=== PATIENT | male | born 1935 | race Caucasian/White ===

== ENCOUNTER 2017-01-06 13:28 | Inpatient (IN) | payer BC, MEDICARE ==
--- NOTE | 2017-01-06 13:47 | ED ---
General Adult HPI - General Chief complaint: Weakness Stated complaint: WEAKNESS,FATIGUE Time Seen by Provider: 01/06/17 13:30 Source: patient, EMS, RN notes reviewed Mode of arrival: EMS Limitations: no limitations - History of Present Illness Initial comments: This is an 81-year-old male who presents emergency department because he has been feeling fatigued every day for the last week. Patient states she's also lost his appetite has not been eating much for the last week. Patient also complains of a cough that is worse than normal. Patient states he has a COPD or and has a slight cough normally but his cough is been much worse lately. Patient denies any sputum production. She went to his doctor's office today and they sent him in because he thought his blood pressure was low. In route EMS stated his blood pressure was normal he continues to be normal at this time. Patient denies any lightheadedness dizziness or near syncopal episode. Patient denies any headache patient denies numbness weakness. Patient denies any recent fever chills. Patient denies any chest pain palpitations difficulty breathing or shortness of breath. Patient denies abdominal pain patient denies nausea vomiting diarrhea. - Related Data Home Medications Medication Instructions Recorded Confirmed Allopurinol [Zyloprim] 300 mg PO DAILY 01/06/17 01/06/17 Aspirin [Adult Low Dose Aspirin EC] 81 mg PO DAILY 01/06/17 01/06/17 Calcium Carbonate/Vitamin D3 1 tab PO DAILY 01/06/17 01/06/17 [Calcium 500-Vit D3 200 Tablet] Cyanocobalamin [Vitamin B-12] 500 mcg PO DAILY 01/06/17 01/06/17 Diazepam [Valium] 5 - 10 mg PO HS PRN 01/06/17 01/06/17 Lovastatin [Mevacor] 40 mg PO HS 01/06/17 01/06/17 Pantoprazole [Protonix] 40 mg PO DAILY 01/06/17 01/06/17 Tiotropium [place] [Spiriva] 1 cap INHALATION RT-DAILY 01/06/17 01/06/17 Allergies Allergy/AdvReac Type Severity Reaction Status Date / Time No Known Allergies Allergy Verified 01/06/17 14:35 Review of Systems ROS Statement: Those systems with pertinent positive or pertinent negative responses have been documented in the HPI. ROS Other: All systems not noted in ROS Statement are negative. Past Medical History Past Medical History: COPD, Hyperlipidemia Additional Past Medical History / Comment(s): Melanoma History of Any Multi-Drug Resistant Organisms: None Reported Past Surgical History: Appendectomy, Orthopedic Surgery Additional Past Surgical History / Comment(s): Colon surgery Past Psychological History: No Psychological Hx Reported Smoking Status: Former smoker Past Alcohol Use History: None Reported Past Drug Use History: None Reported General Exam - General Exam Comments Initial Comments: GENERAL: Patient is well-developed and well-nourished. Patient is nontoxic and well- hydrated and is in no acute distress. ENT: Neck is soft and supple. No significant lymphadenopathy is noted. Oropharynx is clear. Moist mucous membranes. Neck has full range of motion without eliciting any pain. EYES: The sclera were anicteric and conjunctiva were pink and moist. Extraocular movements were intact and pupils were equal round and reactive to light. Eyelids were unremarkable. PULMONARY: Unlabored respirations. Good breath sounds bilaterally. No audible rales rhonchi or wheezing was noted. CARDIOVASCULAR: There is a regular rate and rhythm without any murmurs gallops or rubs. ABDOMEN: Soft and nontender with normal bowel sounds. No palpable organomegaly was noted. There is no palpable pulsatile mass. SKIN: Skin is clear with no lesions or rashes and otherwise unremarkable. NEUROLOGIC: Patient is alert and oriented x3. Cranial nerves II through XII are grossly intact. Motor and sensory are also intact. Normal speech, volume and content. Symmetrical smile. MUSCULOSKELETAL: Normal extremities with adequate strength and full range of motion. No lower extremity swelling or edema. No calf tenderness. LYMPHATICS: No significant lymphadenopathy is noted PSYCHIATRIC: Normal psychiatric evaluation. Normal interpersonal interactions appears functionally intact in deals appropriately with others. No signs of depression. No signs of anxiety. Limitations: no limitations Course Vital Signs 01/06/17 01/06/17 01/06/17 13:31 14:13 14:36 Temperature 97.6 F Pulse Rate 78 74 Pulse Rate [ 74 Velvet Cutter ] Pulse Rate [ 76 Sitting] Pulse Rate [ 82 Standing] Pulse Rate [ 73 Supine] Respiratory 18 18 Rate Blood Pressure 130/60 137/64 Blood Pressure 127/60 [Sitting] Blood Pressure 127/60 [Standing] Blood Pressure 127/58 [Supine] O2 Sat by Pulse 95 95 Oximetry 01/06/17 01/06/17 15:26 16:25 Temperature 97.9 F Pulse Rate 72 73 Pulse Rate [ Velvet Cutter ] Pulse Rate [ Sitting] Pulse Rate [ Standing] Pulse Rate [ Supine] Respiratory 18 18 Rate Blood Pressure 133/61 143/61 Blood Pressure [Sitting] Blood Pressure [Standing] Blood Pressure [Supine] O2 Sat by Pulse 98 94 L Oximetry Medical Decision Making - Medical Decision Making EKG shows normal sinus rhythm at 76 bpm MS interval is 134 QRS is 84 QT interval 394 QTC is 443 per patient's EKG shows no ST segment elevation or depression or T wave abnormalities are noted. Patient's chest x-ray shows pneumonia. I started the patient on Levaquin. I spoke Dr. Ashton he agreed to admit the patient admitted the patient. Wrote admitting orders. - Lab Data Result diagrams: 01/06/17 13:46 01/06/17 13:46 Lab Results 01/06/17 01/06/17 01/06/17 Range/Units 13:46 13:46 13:46 WBC 10.9 H (3.8-10.6) k/uL RBC 3.70 L (4.30-5.90) m/uL Hgb 11.8 L (13.0-17.5) gm/dL Hct 36.8 L (39.0-53.0) % MCV 99.6 (80.0-100.0) fL MCH 31.9 (25.0-35.0) pg MCHC 32.0 (31.0-37.0) g/dL RDW 14.5 (11.5-15.5) % Plt Count 195 (150-450) k/uL Neutrophils % 81 % Lymphocytes % 8 % Monocytes % 6 % Eosinophils % 2 % Basophils % 1 % Neutrophils # 8.8 H (1.3-7.7) k/uL Lymphocytes # 0.8 L (1.0-4.8) k/uL Monocytes # 0.7 (0-1.0) k/uL Eosinophils # 0.3 (0-0.7) k/uL Basophils # 0.1 (0-0.2) k/uL Macrocytosis Slight PT (9.0-12.0) sec INR (<1.2) APTT (22.0-30.0) sec Sodium 139 (137-145) mmol/L Potassium 4.6 (3.5-5.1) mmol/L Chloride 103 (98-107) mmol/L Carbon Dioxide 27 (22-30) mmol/L Anion Gap 9 mmol/L BUN 20 (9-20) mg/dL Creatinine 0.97 (0.66-1.25) mg/dL Est GFR (MDRD) Af Amer >60 (>60 ml/min/1.73 sqM) Est GFR (MDRD) Non-Af >60 (>60 ml/min/1.73 sqM) Glucose 95 (74-99) mg/dL Plasma Lactic Acid [place] (0.7-2.0) mmol/L Calcium 8.4 (8.4-10.2) mg/dL Magnesium 2.1 (1.6-2.3) mg/dL Total Bilirubin 0.4 (0.2-1.3) mg/dL AST 73 H (17-59) U/L ALT 53 (21-72) U/L Alkaline Phosphatase 81 (38-126) U/L Total Creatine Kinase 28 L (55-170) U/L CK-MB (CK-2) <0.2 (0.0-2.4) ng/mL CK-MB (CK-2) Rel Index Troponin I <0.012 (0.000-0.034) ng/mL Total Protein 5.9 L (6.3-8.2) g/dL Albumin 3.3 L (3.5-5.0) g/dL TSH 3.290 (0.465-4.680) mIU/L Free T4 1.46 (0.78-2.19) ng/dL Urine Color Urine Appearance (Clear) Urine pH (5.0-8.0) Ur Specific [place] (1.001-1.035) Urine Protein (Negative) Urine Glucose (UA) (Negative) Urine Ketones (Negative) Urine Blood (Negative) Urine Nitrite (Negative) Urine Bilirubin (Negative) Urine Urobilinogen (<2.0) mg/dL Ur Leukocyte Esterase (Negative) Urine RBC (0-5) /hpf Urine WBC (0-5) /hpf Amorphous Sediment (None) /hpf Urine Mucus (None) /hpf 01/06/17 01/06/17 01/06/17 Range/Units 13:46 13:46 13:46 WBC (3.8-10.6) k/uL RBC (4.30-5.90) m/uL Hgb (13.0-17.5) gm/dL Hct (39.0-53.0) % MCV (80.0-100.0) fL MCH (25.0-35.0) pg MCHC (31.0-37.0) g/dL RDW (11.5-15.5) % Plt Count (150-450) k/uL Neutrophils % % Lymphocytes % % Monocytes % % Eosinophils % % Basophils % % Neutrophils # (1.3-7.7) k/uL Lymphocytes # (1.0-4.8) k/uL Monocytes # (0-1.0) k/uL Eosinophils # (0-0.7) k/uL Basophils # (0-0.2) k/uL Macrocytosis PT 10.3 (9.0-12.0) sec INR 1.0 (<1.2) APTT 25.7 (22.0-30.0) sec Sodium (137-145) mmol/L Potassium (3.5-5.1) mmol/L Chloride (98-107) mmol/L Carbon Dioxide (22-30) mmol/L Anion Gap mmol/L BUN (9-20) mg/dL Creatinine (0.66-1.25) mg/dL Est GFR (MDRD) Af Amer (>60 ml/min/1.73 sqM) Est GFR (MDRD) Non-Af (>60 ml/min/1.73 sqM) Glucose (74-99) mg/dL Plasma Lactic Acid [place] 1.5 (0.7-2.0) mmol/L Calcium (8.4-10.2) mg/dL Magnesium (1.6-2.3) mg/dL Total Bilirubin (0.2-1.3) mg/dL AST (17-59) U/L ALT (21-72) U/L Alkaline Phosphatase (38-126) U/L Total Creatine Kinase (55-170) U/L CK-MB (CK-2) (0.0-2.4) ng/mL CK-MB (CK-2) Rel Index Troponin I (0.000-0.034) ng/mL Total Protein (6.3-8.2) g/dL Albumin (3.5-5.0) g/dL TSH (0.465-4.680) mIU/L Free T4 (0.78-2.19) ng/dL Urine Color Yellow Urine Appearance Clear (Clear) Urine pH 5.5 (5.0-8.0) Ur Specific [place] 1.018 (1.001-1.035) Urine Protein 1+ H (Negative) Urine Glucose (UA) Negative (Negative) Urine Ketones Negative (Negative) Urine Blood Moderate H (Negative) Urine Nitrite Negative (Negative) Urine Bilirubin Negative (Negative) Urine Urobilinogen <2.0 (<2.0) mg/dL Ur Leukocyte Esterase Negative (Negative) Urine RBC 12 H (0-5) /hpf Urine WBC 2 (0-5) /hpf Amorphous Sediment Rare H (None) /hpf Urine Mucus Occasional H (None) /hpf Disposition Clinical Impression: Pneumonia, Generalized weakness, Anorexic Disposition: ADMITTED IP TO THIS [facility] Referrals: Jean Paul Ruvalcaba MD [Primary Care Provider] - 1-2 days Time of Disposition: 16:30
[2017-01-06] MEDS ORDERED: SODIUM CHLORIDE 0.9% 1,000 ML IV STA (14:10)
[2017-01-06 14:22] LABS: Basophils # (A) 0.1 k/uL (0-0.2); Basophils % (A) 1 %; CH 32.4; CHCM 32.7; Eosinophils # (A) 0.3 k/uL (0-0.7); Eosinophils % (A) 2 %; HCT 36.8 % (39.0-53.0); HDW 2.37; HGB 11.8 gm/dL (13.0-17.5); Luc # (Auto) 0.28; Luc % (Auto) 3; Lymphocytes # (A) 0.8 k/uL (1.0-4.8); Lymphocytes % (A) 8 %; MCH 31.9 pg (25.0-35.0); MCV 99.6 fL (80.0-100.0); Macrocytosis Slight; Mean Platelet Volume 8.2; Monocytes # (A) 0.7 k/uL (0-1.0); Monocytes % (A) 6 %; Neutrophils # (A) 8.8 k/uL (1.3-7.7); Neutrophils % (A) 81 %; RDW 14.5 % (11.5-15.5); WBC 10.9 k/uL (3.8-10.6); WBC (Perox) 11.68
[2017-01-06 14:32] LABS: ALT 53 U/L (21-72); AST 73 U/L (17-59); Alkaline Phosphatase 81 U/L (38-126); Anion Gap 9 mmol/L; Blood Urea Nitrogen 20 mg/dL (9-20); Calcium 8.4 mg/dL (8.4-10.2); Carbon Dioxide 27 mmol/L (22-30); Chloride 103 mmol/L (98-107); Glucose 95 mg/dL (74-99); Magnesium 2.1 mg/dL (1.6-2.3); Non-African American GFR(MDRD) >60 (>60 ml/min/1.73 sqM); Potassium 4.6 mmol/L (3.5-5.1); Sodium 139 mmol/L (137-145); Total Bilirubin 0.4 mg/dL (0.2-1.3); Total Protein 5.9 g/dL (6.3-8.2)
[2017-01-06 14:37] LABS: Partial Thromboplastin Time 25.7 sec (22.0-30.0); Prothrombin Time 10.3 sec (9.0-12.0)
[2017-01-06 14:39] LABS: Creatine Kinase 28 U/L (55-170)
[2017-01-06 14:52] LABS: Creatine Kinase MB <0.2 ng/mL (0.0-2.4); Troponin I <0.012 ng/mL (0.000-0.034)
--- NOTE | 2017-01-06 14:54 | XR ---
EXAMINATION TYPE: XR chest 2V DATE OF EXAM: 01/06/2017 COMPARISON: NONE HISTORY: Weakness and fatigue TECHNIQUE: Frontal and lateral views of the chest are obtained. FINDINGS: Ill-defined right lower lobe opacity may represent early pneumonia versus atelectasis. Pro minent diffuse coarse interstitial markings are likely related to chronic interstitial disease rather than interstitial edema. Cardiomediastinal silhouette is within normal limits. Mild degenerative ryan nges are seen of the thoracic spine. IMPRESSION: Vague patchy airspace disease in the right lower lobe may represent pneumonia in the dayron ropriate clinical setting with alternative diagnosis of atelectasis.
[2017-01-06 15:35] LABS: Amorphous Sediment,Urine Rare /hpf; Appearance,Urine Clear (Clear); Bilirubin,Urine Negative (Negative); Glucose,Urine (UA) Negative (Negative); Ketones,Urine Negative (Negative); Leukocyte Esterase,Urine Negative (Negative); Mucus,Urine Occasional /hpf; Nitrite,Urine Negative (Negative); PH, Urine 5.5 (5.0-8.0); Particle Count 10539; Protein,Urine 1+ (Negative); RBC,Urine 12 /hpf (0-5); Specific Gravity,Urine 1.018 (1.001-1.035); UA Billing (MACRO vs. MICRO) MICRO; Urobilinogen,Urine <2.0 mg/dL (<2.0); WBC,Urine 2 /hpf (0-5)
[2017-01-06] MEDS ORDERED: LEVOFLOXACIN 750MG-D5W PMX 750 MG in DEXTROSE/WATER 1 150ML.BAG IVPB STA (15:48)
[2017-01-06] MEDS ORDERED: LEVOFLOXACIN 750MG-D5W PMX 750 MG in DEXTROSE/WATER 1 150ML.BAG IVPB SCH (16:00)
[2017-01-06] MEDS ORDERED: PNEUMONIA PROTOCOL UTILIZED 1 EACH MISC PO PRN (16:30)
[2017-01-06] MEDS: ATORVASTATIN 10 MG TAB PO SCH (20:39)
[2017-01-06] MEDS: MELATONIN 3 MG TABLET PO PRN (22:09)
--- NOTE | 2017-01-07 07:24 | XR ---
EXAMINATION TYPE: XR chest 2V DATE OF EXAM: 01/07/2017 COMPARISON: Yesterday HISTORY: Follow-up pneumonia TECHNIQUE: Frontal and lateral views of the chest are obtained. FINDINGS: There is some patchy airspace consolidation in the right mid and lower lung field. There i s minimal similar infiltrate in the left midlung. There is calcified pleural plaque at the left lung base. There is calcified pleural plaque on the right lateral chest wall. There are no hilar masses. T here is no heart failure. There is no evidence of pleural effusion. IMPRESSION: Compared to yesterday there is increased right-sided pneumonic infiltrate. Pulmonary fib rotic changes and calcified pleural plaque. No heart failure.
[2017-01-07 12:41] VITALS: BMI 19.1
[2017-01-07] MEDS: CALCIUM CARB-VIT D 500MG-200UN 1 EACH TAB PO SCH (13:22)
[2017-01-07] MEDS: ASPIRIN 81 MG CHEW PO SCH (13:22)
[2017-01-07] MEDS: CYANOCOBALAMIN 500 MCG TAB PO SCH (13:22)
[2017-01-07] MEDS: PANTOPRAZOLE 40 MG TABLET PO SCH (13:22)
[2017-01-07] MEDS: ALLOPURINOL 300 MG TAB PO SCH (13:22)
--- NOTE | 2017-01-07 15:52 | CT ---
EXAMINATION TYPE: CT chest wo con DATE OF EXAM: 01/07/2017 COMPARISON: NONE HISTORY: Patient poor historian. Patient complains of difficulty breathing. CT DLP: 195.3 mGycm. Automated Exposure Control for Dose Reduction was Utilized. TECHNIQUE: CT scan of the thorax is performed without IV contrast. FINDINGS: There are mild emphysematous changes in the upper lobes. There is some calcified pleural plaque in josué th posterior lung norris. There is pleural thickening at the posterior lung bases bilaterally. There is a patchy right lower lobe infiltrate. There is a smaller patchy left lower lobe infiltrate. Heart size is normal. There is also some pericardial calcification on the left cardiac border. There is taurus phragmatic pleural calcification on the right side. There is no mediastinal adenopathy. Thoracic aorta shows mild atheromatous change. IMPRESSION: Calcified pleural plaque. Bilateral lower lobe pneumonic infiltrates consistent with pneu monia. Atherosclerotic vascular disease. Emphysema.
[2017-01-07] MEDS ORDERED: LEVOFLOXACIN 750MG-D5W PMX 750 MG in DEXTROSE/WATER 1 150ML.BAG IVPB SCH (16:00)
--- NOTE | 2017-01-07 16:03 | P.HPIM ---
History of Present Illness H&P Date: 01/07/17 This is a 81-year-old gentleman who comes in to the hospital with isolated hypotension. Patient apparently has not been feeling well over the last few days. Patient has a long-standing history of COPD is currently maintained on Spiriva and breathing treatments. Patient states that he has had some weight loss in the recent times Initial chest x-ray did show a right lower lobe pneumonic infiltrate. States to have a cough minimally productive in nature Patient states today that he is feeling significantly better however a repeat chest x-ray today shows worsening of the infiltrate on the right side clinically patient appears to be stable states that he is able to family without any difficulty denies having any headaches blurry vision nausea vomiting diarrhea abdominal pain chest pain and urinary urgency or frequency Patient also has isolated episodes of low blood pressure However does not appear to be significantly symptomatic Review of Systems All systems: negative (Noted in HPI) Past Medical History Past Medical History: Cancer, COPD, GERD/Reflux, Hyperlipidemia, Pneumonia Additional Past Medical History / Comment(s): Melanoma,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 Past Anesthesia/Blood Transfusion Reactions: No Reported Reaction Additional Past Anesthesia/Blood Transfusion Reaction / Comment(s): PT LIVES ALONE IN SINGLE LEVEL HOME THAT HAS 1 FRONT STEP. NO PETS. NO OUTSIDE SERVICES RECEIVED. NO MEDICAL EQUIPMENT. PT SERVED IN THE [employer]. HELD SEVERAL JOBS IN PAST MOST LATESTE ONE BEFORE RETIRING WAS [employer] FOR [employer]. Smoking Status: Former smoker - Past Family History Mother Family Medical History: Cancer Additional Family Medical History / Comment(s): BONE CANCER Father Additional Family Medical History / Comment(s): WORKED IN [employer] SINCE AGE 13 - AT AGE 73 FROM "NATURAL CAUSES" Medications and Allergies Home Medications Medication Instructions Recorded Confirmed Type Allopurinol [Zyloprim] 300 mg PO DAILY 01/06/17 01/06/17 History Aspirin [Adult Low Dose Aspirin EC] 81 mg PO DAILY 01/06/17 01/06/17 History Calcium Carbonate/Vitamin D3 1 tab PO DAILY 01/06/17 01/06/17 History [Calcium 500-Vit D3 200 Tablet] Cyanocobalamin [Vitamin B-12] 500 mcg PO DAILY 01/06/17 01/06/17 History Diazepam [Valium] 5 - 10 mg PO HS PRN 01/06/17 01/06/17 History Lovastatin [Mevacor] 40 mg PO HS 01/06/17 01/06/17 History Pantoprazole [Protonix] 40 mg PO DAILY 01/06/17 01/06/17 History Tiotropium [place] [Spiriva] 1 cap INHALATION RT-DAILY 01/06/17 01/06/17 History Allergies Allergy/AdvReac Type Severity Reaction Status Date / Time No Known Allergies Allergy Verified 01/06/17 14:35 Physical Exam Vitals: Vital Signs Temp Pulse Pulse Pulse Resp BP BP 01/07/17 07:00 98.4 F 68 18 01/06/17 23:00 98.4 F 84 18 01/06/17 18:29 18 01/06/17 17:17 72 18 131/60 01/06/17 16:45 98.0 F 86 16 129/69 01/06/17 16:25 97.9 F 73 18 143/61 BP BP Pulse Ox 01/07/17 07:00 106/44 90 L 01/06/17 23:00 101/48 90 L 01/06/17 18:29 01/06/17 17:17 93 L 01/06/17 16:45 94 L 01/06/17 16:25 94 L Intake and Output 01/07/17 01/07/17 01/07/17 06:59 14:59 22:59 Intake Total 600 Balance 600 Intake: Oral 600 Other: # Voids 1 1 Weight 60.328 kg Patient Weight 01/08/17 06:59 Weight 60.328 kg Physical exam Gen. appearance oriented 3 in no distress Neck is supple no JVD Lungs diminished breath sounds no rhonchi or wheezing or crackles. Heart S1-S2 heard regular rate and rhythm no murmurs appreciated Abdomen is soft nontender no organomegaly bowel sounds are intact Neurologically cranial nerves II-12 grossly intact no focal motor or sensory deficits noted Skin no abnormalities appreciated Results CBC & Chem 7: 01/06/17 13:46 01/06/17 13:46 Thrombosis Risk Factor Assmnt - Choose All That Apply Any of the Below Risk Factors Present?: Yes Each Factor Represents 1 point: Abnormal pulmonary function (COPD) Other Risk Factors: Yes Each Risk Factor Represents 3 Points: Age 75 years or older Thrombosis Risk Factor Assessment Total Risk Factor Score: 4 Thrombosis Risk Factor Assessment Level: Moderate Risk Assessment and Plan Plan: #1 acute right lower lobe pneumonia #2 COPD with an acute exacerbation. #3 previous history of tobacco use #4 isolated hypotension however asymptomatic #5 moderate to severe protein calorie malnutrition. Her graft #6 anemia of unknown etiology Plan We'll obtain a computed tomography scan of the chest without contrast Did discuss if patient has any aspiration symptomatology patient appears to refuse it Continue with current medications will start Solu-Medrol 20 mg IV every 12 hours If patient is stable we'll likely discharge the patient home in the next 24 hours.
[2017-01-07] MEDS: methylPREDNISolone SOD SUCCI 40 MG/ML 1 ML VIAL IV SCH (20:44)
[2017-01-07] MEDS: ATORVASTATIN 10 MG TAB PO SCH (20:44)
[2017-01-07] MEDS: MELATONIN 3 MG TABLET PO PRN (22:18)
[2017-01-08] MEDS: PANTOPRAZOLE 40 MG TABLET PO SCH (07:40)
[2017-01-08] MEDS: ALLOPURINOL 300 MG TAB PO SCH (07:40)
[2017-01-08] MEDS: ASPIRIN 81 MG CHEW PO SCH (07:40)
[2017-01-08] MEDS: methylPREDNISolone SOD SUCCI 40 MG/ML 1 ML VIAL IV SCH (07:40)
[2017-01-08] MEDS ORDERED: TIOTROPIUM 18 MCG/PUFF INHALER INHALATION SCH (08:00)
[2017-01-08 08:02] VITALS: RESP 16
[2017-01-08 09:01] LABS: Basophils % (A) 0 %; CH 32.4; CHCM 32.8; Eosinophils % (A) 0 %; HCT 39.2 % (39.0-53.0); HDW 2.36; HGB 12.3 gm/dL (13.0-17.5); Luc # (Auto) 0.08; Luc % (Auto) 1; Lymphocytes # (A) 0.7 k/uL (1.0-4.8); Lymphocytes % (A) 7 %; MCH 31.1 pg (25.0-35.0); MCHC 31.4 g/dL (31.0-37.0); MCV 99.1 fL (80.0-100.0); Mean Platelet Volume 7.9; Monocytes # (A) 0.3 k/uL (0-1.0); Monocytes % (A) 3 %; Neutrophils # (A) 8.8 k/uL (1.3-7.7); Neutrophils % (A) 88 %; RBC 3.96 m/uL (4.30-5.90); RDW 14.1 % (11.5-15.5); WBC 9.9 k/uL (3.8-10.6); WBC (Perox) 9.57
[2017-01-08 09:11] LABS: ALT 57 U/L (21-72); AST 46 U/L (17-59); Alkaline Phosphatase 78 U/L (38-126); Anion Gap 10 mmol/L; Blood Urea Nitrogen 16 mg/dL (9-20); Calcium 9.1 mg/dL (8.4-10.2); Carbon Dioxide 25 mmol/L (22-30); Chloride 103 mmol/L (98-107); Glucose 156 mg/dL (74-99); Non-African American GFR(MDRD) >60 (>60 ml/min/1.73 sqM); Potassium 4.9 mmol/L (3.5-5.1); Sodium 138 mmol/L (137-145); Total Bilirubin 0.3 mg/dL (0.2-1.3); Total Protein 5.9 g/dL (6.3-8.2)
[2017-01-08] MEDS: CYANOCOBALAMIN 500 MCG TAB PO SCH (12:06)
[2017-01-08] MEDS: CALCIUM CARB-VIT D 500MG-200UN 1 EACH TAB PO SCH (12:06)
[2017-01-08 14:45] VITALS: BP 112/51; PULSE 89; TEMP 96.8
--- NOTE | 2017-01-08 15:10 | P.DS ---
Providers Date of admission: 01/06/17 16:30 Attending physician: Joshua Ashton MD Primary care physician: Jean Paul Edmondqvi [place] [facility] Course: This is a 81-year-old gentleman who comes in to the hospital with isolated hypotension. Patient apparently has not been feeling well over the last few days. Patient has a long-standing history of COPD is currently maintained on Spiriva and breathing treatments. Patient states that he has had some weight loss in the recent times Initial chest x-ray did show a right lower lobe pneumonic infiltrate. States to have a cough minimally productive in nature Patient states today that he is feeling significantly better however a repeat chest x-ray today shows worsening of the infiltrate on the right side clinically patient appears to be stable states that he is able to family without any difficulty denies having any headaches blurry vision nausea vomiting diarrhea abdominal pain chest pain and urinary urgency or frequency Patient also has isolated episodes of low blood pressure However does not appear to be significantly symptomatic Physical exam Gen. appearance oriented 3 in no distress Neck is supple no JVD Lungs diminished breath sounds no rhonchi or wheezing or crackles. Heart S1-S2 heard regular rate and rhythm no murmurs appreciated Abdomen is soft nontender no organomegaly bowel sounds are intact Neurologically cranial nerves II-12 grossly intact no focal motor or sensory deficits noted Skin no abnormalities appreciated Plan: #1 acute rbilateral pneumonia improved #2 COPD with an acute exacerbation. #3 previous history of tobacco use #4 isolated hypotension however asymptomatic #5 moderate to severe protein calorie malnutrition. Her graft #6 anemia of unknown etiology levaquin for 7 days dc home Plan - Discharge Summary New Discharge Prescriptions: New Levofloxacin [Levaquin] 500 mg PO DAILY #7 tab Continue Tiotropium [place] [Spiriva] 1 cap INHALATION RT-DAILY Cyanocobalamin [Vitamin B-12] 500 mcg PO DAILY Pantoprazole [Protonix] 40 mg PO DAILY Lovastatin [Mevacor] 40 mg PO HS Diazepam [Valium] 5 - 10 mg PO HS PRN PRN Reason: Anxiety Calcium Carbonate/Vitamin D3 [Calcium 500-Vit D3 200 Tablet] 1 tab PO DAILY Aspirin [Adult Low Dose Aspirin EC] 81 mg PO DAILY Allopurinol [Zyloprim] 300 mg PO DAILY Discharge Medication List Allopurinol [Zyloprim] 300 mg PO DAILY 01/06/17 [History] Aspirin [Adult Low Dose Aspirin EC] 81 mg PO DAILY 01/06/17 [History] Calcium Carbonate/Vitamin D3 [Calcium 500-Vit D3 200 Tablet] 1 tab PO DAILY [History] Cyanocobalamin [Vitamin B-12] 500 mcg PO DAILY 01/06/17 [History] Diazepam [Valium] 5 - 10 mg PO HS PRN 01/06/17 [History] Lovastatin [Mevacor] 40 mg PO HS 01/06/17 [History] Pantoprazole [Protonix] 40 mg PO DAILY 01/06/17 [History] Tiotropium [place] [Spiriva] 1 cap INHALATION RT-DAILY 01/06/17 [History] Levofloxacin [Levaquin] 500 mg PO DAILY #7 tab 01/08/17 [Rx] Follow up Appointment(s)/Referral(s): Jean Paul Ruvalcaba MD [Primary Care Provider] - 1-2 days Discharge Disposition: HOME SELF-CARE
== END 2017-01-08 16:00 | disposition home or self-care (01) | DRG 190 ==
LOC: EC 13:28 → 4MS4W 16:30
PROVIDERS: ADMIT Internal Medicine; ATTEND Internal Medicine
DX: J44.0 Chronic obstructive pulmonary disease with (acute) lower respiratory infection (principal); J18.9 Pneumonia, unspecified organism; E43 Unspecified severe protein-calorie malnutrition; I95.9 Hypotension, unspecified; D64.9 Anemia, unspecified; J44.1 Chronic obstructive pulmonary disease with (acute) exacerbation; E78.5 Hyperlipidemia, unspecified; K21.9 Gastro-esophageal reflux disease without esophagitis; M10.9 Gout, unspecified; Z79.82 Long term (current) use of aspirin; Z79.899 Other long term (current) drug therapy; Z85.820 Personal history of malignant melanoma of skin; Z85.038 Personal history of other malignant neoplasm of large intestine; Z87.891 Personal history of nicotine dependence
CPT/HCPCS: 36415; 71020; 71250; 80053; 81001; 82533; 82550; 82553; 83605; 83735; 84439; 84443; 84484; 85025; 85610; 85730; 87040; 93005; 96361; 96365; 99285

== ENCOUNTER → 2019-02-26 | Outpatient (CLI) | payer MEDICARE ==
[2019-02-27 08:49] LABS: Angiotensin-1 Converting Enz. 49 U/L (8-52)
== END | disposition home or self-care (01) ==
LOC: LABWHC1 16:59
PROVIDERS: ATTEND Ophthalmology
DX: H35.52 Pigmentary retinal dystrophy (principal)
CPT/HCPCS: 36415; 82164; 85549; 85652; 86038; 86140; 86780

== ENCOUNTER → 2019-04-05 | Outpatient (CLI) | payer MEDICARE | END | disposition home or self-care (01) | LOC: LABWHC1 11:07 | PROVIDERS: ATTEND Internal Medicine Hematology & Oncology | DX: C18.9 Malignant neoplasm of colon, unspecified (principal) | CPT/HCPCS: 36415; 82565; 84520 ==

== ENCOUNTER → 2019-04-06 | Outpatient (CLI) | payer MEDICARE ==
--- NOTE | 2019-04-06 16:25 | CT ---
EXAMINATION TYPE: CT ChestAbdPelvis w con DATE OF EXAM: 04/06/2019 COMPARISON: Chest CT dated 01/07/2017 HISTORY: Colon ca, observe for mets CT DLP: 555.90 mGycm. Automated Exposure Control for Dose Reduction was Utilized. CONTRAST: CT scan of the thorax, abdomen and pelvis is performed with IV Contrast, patient injected with 100 mL of Isovue 300. FINDINGS: LUNGS: There is biapical pleural parenchymal scarring, right greater than left. Advanced emphysematou s changes of the lungs are seen. There is a right lower lobe 4.0 x 2.9 cm mass measured on series 5 image 34 with surrounding right hi lar adenopathy and peribronchial soft tissue thickening. Few subcentimeter additional atelectatic pul monary nodule such as on image 32. Chronic right basilar opacity dating back to [address] eural plaques. Diaphragmatic rents are also seen. Peribronchial cuffing throughout is present that co uld be on the basis of reactive airway disease with this patient's underlying COPD. There is thickeni ng of the right major fissure. MEDIASTINUM: There is abnormal mediastinal adenopathy. Subcarinal lymph node measures 3.3 x 3.7 cm on series 3 image 32. Right hilar adenopathy measures 1.9 cm in short axis on image 36. Superhilar marie opathy on the right measures 3.9 x 2.4 cm on image 29. No contralateral suspicious adenopathy. No tony picious supraclavicular adenopathy by size criteria. Mild coronary artery calcifications. Pericardial calcifications, likely sequela prior pericarditis. S mall hiatal hernia. 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 Still is suspected with filling of the distal subclavian art trixie likely from retrograde filling from the left vertebral artery. LIVER/GB: No suspicious hepatic lesion is seen. Gallbladder is partially contracted. No intrahepatic biliary ductal dilatation. PANCREAS: No significant abnormality is seen. SPLEEN: No splenomegaly. ADRENALS: No nodule nor thickening. KIDNEYS: There are bilateral subcentimeter too small to accurately characterize renal lesions. No hyd ronephrosis of either kidney. BOWEL: Sigmoid anastomotic site is seen within the colon. No local adenopathy or soft tissue nodule. No proximal dilatation to suggest anastomotic stricture. Decompression of the colon is seen multifoca lly. Oral contrast progresses to the transverse colon only. No dilated large or small bowel. Small hi atal hernia. Thickening of the gastric body likely relates to peristalsis or gastritis. This is best appreciated on coronal series 8 image 18. GENITAL ORGANS: Prostate gland is heterogenous. LYMPH NODES: No greater than 1cm abdominal or pelvic lymph nodes are appreciated. OSSEOUS STRUCTURES: There is diffuse osseous demineralization seen. Mild multilevel degenerative whitehead ges of the spine. Compression deformity of L4 is age indeterminant. Correlate with point tenderness. This does not appear to be pathologic as no sclerotic or lytic lesion is seen. This may be osteoporot ic. Vertebral body height loss is approximately 30% with 1 mm retropulsion of the superior endplate i nto the spinal canal. OTHER: Moderate to severe atherosclerosis is seen of the abdominal aorta and its branches. IMPRESSION: 1. Right lower lobe 4.0 cm Central pulmonary mass with satellite pulmonary nodules. Although metastas is is possible primary lung carcinoma is a more likely consideration and bronchoscopy would be recomm ended as this patient will be high risk for percutaneous biopsy given the advanced underlying emphyse ma. Subcarinal and its lateral pathologically abnormal mediastinal adenopathy. No supraclavicular or contralateral adenopathy. 2. 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 This was not present on the carotid ultrasound of 01/12/2016. 3. Age indeterminant compression deformity of L4. No current suspicion for pathologic fracture deform ity. Osteoporotic fracture deformity is possible. 4. Thickening of the gastric body that most commonly relates to gastritis. Other etiologies are possi ble. 5. Calcified pleural plaques, likely on the basis of prior asbestos exposure and pericardial calcific ations likely from prior pericarditis.
--- NOTE | 2019-04-06 18:27 | MR ---
EXAMINATION TYPE: MR brain wo/w con DATE OF EXAM: 04/06/2019 COMPARISON: None HISTORY: Colon CA, mets TECHNIQUE: Multiplanar, multisequence images of the brain and brainstem is performed without and with IV contras t, utilizing 6 mL intravenous Gadavist . FINDINGS: There is diffuse cerebral cortical atrophy. There is no mass effect nor midline shift. Ther e is no sign of intracranial hemorrhage. There is no evidence of acute cortical infarct. There is kimber e thinning of the corpus callosum. There is mucosal thickening left maxillary sinus. Brainstem is int act. There is very minimal increased signal adjacent to the lateral ventricles that measures up to 3 mm on the T2 and FLAIR images. Contrast images show no pathologic enhancement. There is normal contrast opacification of the venous sinuses. IMPRESSION: Cerebral atrophy. No acute intracranial abnormality. No evidence of metastatic disease. M ild to moderate maxillary sinusitis.
== END | disposition home or self-care (01) ==
LOC: RADMRIMAIN 11:25
PROVIDERS: ATTEND Internal Medicine Hematology & Oncology
DX: G31.9 Degenerative disease of nervous system, unspecified (principal); C18.9 Malignant neoplasm of colon, unspecified; J43.9 Emphysema, unspecified; R59.0 Localized enlarged lymph nodes; K31.89 Other diseases of stomach and duodenum; I31.9 Disease of pericardium, unspecified; R91.8 Other nonspecific abnormal finding of lung field
CPT/HCPCS: 71260; 74177; 70553; A9585; Q9967

== ENCOUNTER 2019-04-17 10:49 | Day surgery (SDC) | payer MEDICARE ==
[2019-04-16 10:38] VITALS: BMI 18.1
[~2019-04-17 10:49] MED LIST: ALBUTEROL NEB (CONC) 2.5 MG/0.5 ML INHALATION ONE; LACTATED RINGERS 1,000 ML IV SCH; LIDOCAINE 2% (PF) 20 MG/ML 5 ML VIAL INHALATION ONE; LIDOCAINE VISCOUS 300 MG/15 ML CUP MUCOUS MEM ONE; SODIUM CHLORIDE 0.9% 1,000 ML IV SCH
[2019-04-17] MEDS ORDERED: LIDOCAINE 1% 20 ML VIAL (10MG/ML) FOR IV START INTRADERMA ONE (11:28)
--- NOTE | 2019-04-17 12:32 | CT ---
EXAMINATION TYPE: CT Chest wo con Veran Protocol DATE OF EXAM: 04/17/2019 COMPARISON: Prior CT 04/06/2019 HISTORY: VERAN PROTOCOL lung mass right lower lobe CT DLP: 627 mGycm Automated exposure control for dose reduction was used. Helical imaging through the chest for procedu re planning FINDINGS: The patient's right lower lobe lung mass is again seen. Some probable dependent atelectatic changes o r scarring also noted. Underlying emphysematous change, pleural plaques again seen. Noncontrast exam. Subcarinal and right hilar adenopathy is present. There is a hiatal hernia present. IMPRESSION: CT FOR BRONCHOSCOPY PLANNING
[2019-04-17] MEDS ORDERED: NEOSTIGMINE 1 MG/ML 10 ML VIAL ONE (12:55)
[2019-04-17] MEDS ORDERED: PHENYLEPHRINE-0.9% NACL SYG 1 MG/10 ML SYRINGE ONE (12:55)
[2019-04-17] MEDS ORDERED: GLYCOPYRROLATE 0.2 MG/ML 2 ML VIAL ONE (12:55)
[2019-04-17] MEDS ORDERED: MIDAZOLAM 2 MG/2 ML VIAL ONE (12:55)
[2019-04-17] MEDS ORDERED: ROCURONIUM BROMIDE 10 MG/ML 10 ML VIAL IV ONE (12:55)
[2019-04-17] MEDS ORDERED: PROPOFOL 10 MG/ML 20 ML VIAL IV ONE (12:55)
[2019-04-17] MEDS ORDERED: LIDOCAINE 1% INJ 10MG/ML (20 ML MDV) ONE (12:55)
[2019-04-17] MEDS ORDERED: fentaNYL (PF) 50 MCG/ML 2 ML AMP ONE (12:55)
[2019-04-17] MEDS ORDERED: SUCCINYLCHOLINE CHLORIDE 100 MG/5 ML SYR IV ONE (12:55)
[2019-04-17 14:21] VITALS: TEMP 96.9
[2019-04-17 14:45] VITALS: RESP 16
--- NOTE | 2019-04-17 14:51 | P.PCN ---
Date of Procedure: 04/17/19 Preoperative Diagnosis: Right lower lobe mass Postoperative Diagnosis: Right lower lobe mass Procedure(s) Performed: Bronchoscopy under navigational guidance, transbronchial needle aspirate of subcarinal lymph node station 7, transbronchial needle aspirate of right paratracheal lymph node station 4R, transbronchial brushing of the right lower lobe mass, transbronchial biopsy of a right lower lobe mass Anesthesia: LILIBETH Surgeon: Kaya Donato Cigarette Machine Filler #1: Nivia Quigley Estimated Blood Loss (ml): 0 Pathology: other Condition: stable Disposition: same day Indications for Procedure: Right lower lobe mass Operative Findings: His procedure was done in the operating room. The patient underwent a computed tomography scan of the chest using the Veran protocol. The patient was taken to radiology where the CAT scan was done and the V pads were applied and following that he was brought back to the operating room. The CAT scans were uploaded into the system and the right lower lobe mass and the paratracheal and subcari nal lymph nodes were mapped The patient was intubated in the usual fashion. Following intubation, the flexible bronchoscope was introduced into the lower trachea. The appropriate calibration was done using the main adrianne and the secondary adrianne on the left as the reference points. A quick airway inspection was done. The central trachea, bilateral mainstem bronchi were within normal limits. At the level of the distal tracheal wall, there was some mass effect probably related to the right paratracheal lymph node which was also compressing the proximal right mainstem bronchus. Nevertheless, I was able to pass the bronchoscope into the right mainstem bronchus and then moved to the right upper lobe and at the segments of the right upper lobar accurately visualized. Following that, the bronchoscope was moved to the bronchus intermedius and then the right middle lobe and the right lower lobe and all of the segments were patent within normal limits. Examination of the study fluid the left mainstem bronchus, left upper lobe and left lower lobe bronchi along his face segments. At this point, the bronchus was brought back to the main adrianne and using a navigational guidance, transbronchial needle aspirate of the subcarinal station 7 and transbronchial needle aspirate of the right paratracheal station 4R lymph nodes was done under navigational guidance. I used a 19-gauge cytology needle. The samples were adequate and there were confirmed by pathology the bedside. Following that, the bronchoscope was moved to the severe segment of the right lower lobe and under navigational guidance, which was segments were utilized to biopsy the right lower lobe mass. The targeted biopsies were obtained without any difficulties and we were 0 mm away from the target lesion. At the completion of the procedure, transbronchial brushing of the right lower lobe mass was also done under navigational guidance. The scope was removed. The patient was extubated and then was transferred to recovery in stable condition. The postoperative chest x-ray showed a very tiny less than 5% pneumothorax on the right. The patient was a symptomatically and the patient will be discharged home once cleared by anesthesia. He'll be followed up with me in the office in a week's time, earlier if needed.
--- NOTE | 2019-04-17 15:28 | XR ---
EXAMINATION TYPE: XR chest 1V portable DATE OF EXAM: 04/17/2019 COMPARISON: Chest x-ray January 07, 2017. CT chest April 06, 2019. HISTORY: Abnormal CT. Right lung mass. TECHNIQUE: Single frontal view of the chest is obtained. FINDINGS: There is background chronic emphysematous change with persistent right hilar mass. Curvili near line right upper lung if suspicious, there may be some lung markings extending peripheral to thi s however. I do suspect tiny pneumothorax. No mediastinal shift. Cardiac silhouette size remains with in normal limits. The osseous structures remain demineralized. Bilateral calcified pleural plaques are redemonstrated. IMPRESSION: Suspect tiny right apical pneumothorax estimated under 5%. Short-term progress chest x-r ay advised.
[2019-04-17 15:41] VITALS: BP 135/68; PULSE 65
== END 2019-04-17 15:54 | disposition home or self-care (01) ==
LOC: ORWHC2ENDO 10:49
PROVIDERS: ATTEND Internal Medicine Critical Care Medicine
DX: C34.31 Malignant neoplasm of lower lobe, right bronchus or lung (principal); E78.5 Hyperlipidemia, unspecified; J44.9 Chronic obstructive pulmonary disease, unspecified; F17.210 Nicotine dependence, cigarettes, uncomplicated; F41.9 Anxiety disorder, unspecified; G47.00 Insomnia, unspecified; H54.7 Unspecified visual loss; J61 Pneumoconiosis due to asbestos and other mineral fibers; M10.9 Gout, unspecified; K21.9 Gastro-esophageal reflux disease without esophagitis; Z85.820 Personal history of malignant melanoma of skin; Z85.038 Personal history of other malignant neoplasm of large intestine; Z90.49 Acquired absence of other specified parts of digestive tract; Z92.21 Personal history of antineoplastic chemotherapy; Z79.82 Long term (current) use of aspirin; Z79.899 Other long term (current) drug therapy; Z80.8 Family history of malignant neoplasm of other organs or systems
CPT/HCPCS: 88104; 88305; 88173; 88342; 88341; 71045; 71250; 31628; 31629; 31623; 31627; J2250; J2710; J2001; J3010; J2370; J0330; J2704; 31625

== ENCOUNTER → 2019-06-26 | Outpatient (CLI) | payer MEDICARE ==
[2019-06-26 08:33] LABS: African American GFR (CKD) >90 (>60 ml/min/1.73 sqM); Blood Urea Nitrogen 24 mg/dL (9-20); Non-African American GFR(CKD) 84 (>60 ml/min/1.73 sqM)
--- NOTE | 2019-06-26 09:57 | CT ---
EXAMINATION TYPE: CT chest w con DATE OF EXAM: 06/26/2019 COMPARISON: 04/06/2019 HISTORY: Lung CA CT DLP: 146.5 mGycm Automated exposure control for dose reduction was used. CONTRAST: CT scan of the chest is performed with IV Contrast, patient injected with 100 mL of Isovue 300. FINDINGS: LUNGS: Previously noted right infrahilar mass is no longer visible and may have been resected. There is parenchymal scarring at the site of prior mass. No new mass is seen. Small 6 mm spiculated nodular density along the fissure right upper lobe image 28 is unchanged. No pleural effusion or infiltrate. Hyperinflation compatible with COPD. Scattered emphysematous changes noted. Scattered calcified pleu ral plaques compatible with asbestos related pleural disease. MEDIASTINUM: Resolution of previously noted right hilar, mediastinal and subcarinal adenopathy. Thora cic aorta is of normal caliber. The heart is not enlarged. UPPER ABDOMEN: No significant abnormality appreciated. OTHER: No additional significant abnormality is seen. IMPRESSION: 1. Previously noted right infrahilar mass is no longer visible. Normalization of right hilar and medi astinal abnormal lymph node seen previously. 2. 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 3. Small spiculated nodular density along the fissure right upper lobe is unchanged.
== END | disposition home or self-care (01) ==
LOC: RADCTMAIN 07:45
PROVIDERS: ATTEND Internal Medicine Hematology & Oncology
DX: Z03.89 Encounter for observation for other suspected diseases and conditions ruled out (principal); C34.91 Malignant neoplasm of unspecified part of right bronchus or lung; J94.9 Pleural condition, unspecified
CPT/HCPCS: 82565; 84520; 71260; 36415; Q9967

== ENCOUNTER → 2019-08-26 | Outpatient (CLI) | payer MEDICARE ==
[2019-08-26 14:00] LABS: African American GFR (CKD) >90 (>60 ml/min/1.73 sqM); Blood Urea Nitrogen 19 mg/dL (9-20); Non-African American GFR(CKD) 79 (>60 ml/min/1.73 sqM)
--- NOTE | 2019-08-27 09:02 | CT ---
EXAMINATION TYPE: CT ChestAbdPelvis w con DATE OF EXAM: 08/26/2019 COMPARISON: Chest 06/26/2019 and abdomen pelvis 04/06/2019 HISTORY: 84-year-old male Lung cancer, observe for mets. TECHNIQUE: Contiguous axial scanning of the chest, abdomen, and pelvis performed with IV Contrast, pa tient injected with 80 mL of Isovue M300. Delayed images through the kidneys were obtained. Coronal/s agittal reconstructions performed. CT DLP: 522.9 mGycm Automated exposure control for dose reduction was used. FINDINGS: CHEST: The heart is normal size without pericardial effusion. Some pericardial calcifications along the left side of the heart are unchanged. Minimal LAD calcification. Aorta normal caliber with mild atherosclerotic arch calcifications. There is a 1.8 cm long occlusion of the proximal left subclavian artery redemonstrated. Mediastinal lymph nodes show slight increasing size: 9 mm in the precarinal region versus 5 mm, previously. 1.2 cm subcarinal versus 7 mm, previously. 1.2 cm left infrahilar versus 9 mm, previously. 6 mm left hilar lymph node, previously not seen. 7 mm right hilar lymph node, unchanged. Moderate centrilobular emphysema. Similar strandy scarring at the lung bases. Scattered calcified ple ural plaques in keeping with prior asbestos exposure Residual linear spiculation right infrahilar region, axial image 33 remains unchanged from 06/26/2019, likely site of treated disease. Biapical pleural parenchymal scarring. 7 mm superior segment left lower lobe pulmonary nodule, axial image 24 remains unchanged from 019 but should continue to be followed. ABDOMEN: Small hiatal hernia. No focal liver lesion. No biliary ductal dilatation. Portal venous system is patent. Gallbladder, adrenal glands, right kidney, spleen, and pancreas appear within normal limits. Subcentimeter cortical hypodensities within the left kidney are unchanged suggesting renal cortical c ysts. No dilated small bowel, free fluid, or free air. No mesenteric or retroperitoneal lymphadenopathy. Oral contrast progressed to the hepatic flexure. Mild overall stool burden. Staple line along the dis lauren sigmoid colon. No pericolonic inflammatory change. PELVIS: Prostate gland measures 4.3 cm wide. Bladder under distended. No abnormal fluid collection in the pel vis or pelvic lymphadenopathy. BONES: L4 superior endplate fracture is unchanged. No new vertebral compression deformity. IMPRESSION: 1. STABLE LINEAR SPICULATION RIGHT INFRAHILAR region compatible with site of treated disease. 2. However, note that a few mediastinal lymph nodes show slight increasing size (measuring up to 1.2 cm now versus 7 mm, previously). Close follow-up recommended to exclude recurrent disease. 3. COPD with moderate emphysema. A 7 mm superior segment left lower lobe pulmonary nodule remains sta ble from 04/06/2019 and can continue to be followed. 4. Small hiatal hernia, asbestos related pleural disease, prior resection changes along the mid to di stal sigmoid, and unchanged superior endplate deformity of L4.
== END | disposition home or self-care (01) ==
LOC: RADCTMAIN 12:16
PROVIDERS: ATTEND Internal Medicine Hematology & Oncology
DX: C34.91 Malignant neoplasm of unspecified part of right bronchus or lung (principal); K44.9 Diaphragmatic hernia without obstruction or gangrene; J43.9 Emphysema, unspecified; J94.9 Pleural condition, unspecified
CPT/HCPCS: 82565; 84520; 71260; 74177; 36415; Q9967 ×2

== ENCOUNTER → 2019-10-09 | Outpatient (CLI) | payer MEDICARE ==
--- NOTE | 2019-10-09 12:22 | MR ---
EXAMINATION TYPE: MR brain wo/w con DATE OF EXAM: 10/09/2019 COMPARISON: MRI brain dated 04/06/2019 HISTORY: Just Finished Chemo, Some slurring of Speech and no improvement of eyesight. History of lung and colon cancer TECHNIQUE: Multiplanar, multisequence images of the brain and brainstem is performed without and with IV contras t, utilizing 6 mL intravenous Gadavist . Motion artifact partially limits the examination. FINDINGS: Diffusion weighted images demonstrate no evidence of a recent infarct or other diffusion ab normality. There is no extra-axial fluid collection. Few scattered areas of T2/FLAIR hyperintensity are suboptimally measured given motion artifact but typically related to sequela of chronic microangi opathy. The ventricles are symmetrically prominent compatible with age-related volume loss. The brai n volume is age appropriate. Midline structures demonstrate normal morphology. The craniocervical junction appears within normal limits. Post contrast images demonstrate no pathologic enhancement. A stable prominent draining dura l vein extends to the anterior horn of the right lateral ventricle unchanged from the prior. The dura l venous sinuses appear patent. There is complete opacification of the left maxillary sinus that appe ars chronic seen on the prior of 04/06/2019. IMPRESSION: 1. No pathologic enhancement. No MR evidence of intracranial metastasis. 2. Mild burden nonspecific white matter change, most commonly on the basis of chronic microangiopathy . 3. Complete opacification of the left maxillary sinus. CT of the paranasal sinuses is recommended to evaluate for silent sinus syndrome.
== END | disposition home or self-care (01) ==
LOC: RADMRIMAIN 10:55
PROVIDERS: ATTEND Internal Medicine Hematology & Oncology
DX: I73.9 Peripheral vascular disease, unspecified (principal); R90.82 White matter disease, unspecified; C34.91 Malignant neoplasm of unspecified part of right bronchus or lung
CPT/HCPCS: 70553; A9585

== ENCOUNTER → 2019-12-09 | Outpatient (CLI) | payer MEDICARE ==
--- NOTE | 2019-12-09 13:57 | CT ---
EXAMINATION TYPE: CT ChestAbdPelvis w con DATE OF EXAM: 12/09/2019 COMPARISON: 08/26/2019 and 04/06/2019 HISTORY: 84-year-old male Z03.89, Lung cancer TECHNIQUE: Contiguous axial scanning of the chest, abdomen, and pelvis performed with IV Contrast, pa tient injected with 100 ml mL of Isovue 300. Delayed images through the kidneys were obtained. Cano l/sagittal reconstructions performed. CT DLP: 884 mGycm Automated exposure control for dose reduction was used. FINDINGS: CHEST: The heart is normal size without pericardial effusion. Mild LAD calcifications are present. Borderline ectasia aortic root at 3.6 cm. Moderate atherosclerotic arch calcifications with conventio nal arch vessel branching anatomy. Redemonstrated short segment occlusion of the left subclavian nano ry for a span of 1.8 cm, refer to coronal image 33 and axial image 14. Scattered nonenlarged mediastinal lymph nodes are unchanged. A borderline sized 1.0 cm left infrahila r lymph node, axial image 36 is unchanged. Moderate centrilobular emphysema. Scattered calcified pleural plaques compatible with prior asbestos exposure. Unchanged pleural thickening along the superior right major fissure, axial image 29. Biapical pleural parenchymal scarring is unchanged. Minimal thickening along the lateral upper left major fissure, axial image 18 and 27 unchanged. Focal 8 mm superior segment left lower lobe nodule, axial image 28 remains unchanged back to 04/06/20 19. Focal opacity posterior right base, probably pleural parenchymal scarring is unchanged. ABDOMEN: Small hiatal hernia. Stable subcentimeter hypodensity segment 6 right liver lobe suggesting a benign cyst. Portal venous system is patent. No biliary ductal dilatation. Gallbladder, adrenal glands, right kidney, and spleen show no gross abnormality. 9 mm nodule at the splenic hilum, axial image 66 is unchanged from 08/26/2019, possible splenule or adj acent pancreatic tissue lobule. Numerous cortical hypodensities within the left kidney measuring up to 8 mm. These are too small for accurate CT characterization, likely cysts. Moderate atherosclerotic calcifications infrarenal abdominal aorta and iliac arteries. No dilated small bowel, free fluid, or free air. Multiple moderate stool in the right side of the colon. Staple line at the distal sigmoid from prior resection and reanastomosis. No pericolonic inflammatory change. No mesenteric or retroperitoneal lymphadenopathy. PELVIS: Bladder urine distended. Prostate gland measures 4.3 cm wide. No abnormal fluid collection in the pel vis or pelvic lymphadenopathy. BONES: Osteopenia. Mild degenerative change of the hips. Mild degenerative change right SI joint. Superior e ndplate deformity of L4 is unchanged back to 04/06/2019 compatible with a chronic endplate injury. No osseous destructive process. IMPRESSION: 1. CALCIFIED PLEURAL PLAQUES COMPATIBLE WITH PRIOR ASBESTOS EXPOSURE. COPD WITH MODERATE EMPHYSEMA. 2. SCATTERED PLEURAL PARENCHYMAL THICKENING AND AN 8 MM SUPERIOR SEGMENT LEFT LOWER LOBE NODULE REMAI N UNCHANGED BACK TO 04/06/2019. 3. NO NEW OR ENLARGING MEDIASTINAL/HILAR LYMPHADENOPATHY TO SUGGEST RECURRENCE AT THIS TIME . 4. REDEMONSTRATED 1.8 CM LONG SEGMENT OF OCCLUSION OF THE LEFT SUBCLAVIAN ARTERY.
== END | disposition home or self-care (01) ==
LOC: RADCTMAIN 09:48
PROVIDERS: ATTEND Internal Medicine Hematology & Oncology
DX: J43.9 Emphysema, unspecified (principal); R91.8 Other nonspecific abnormal finding of lung field; C34.90 Malignant neoplasm of unspecified part of unspecified bronchus or lung
CPT/HCPCS: 82565; 84520; 71260; 74177; 36415; Q9967

== ENCOUNTER → 2020-03-09 | Outpatient (CLI) | payer MEDICARE ==
--- NOTE | 2020-03-09 16:28 | CT ---
EXAMINATION TYPE: CT ChestAbdPelvis w con DATE OF EXAM: 03/09/2020 COMPARISON: CT chest abdomen pelvis 12/09/2019, 04/06/2019. HISTORY: Follow up on lung and colon cancers CT DLP: 488.70 mGycm Automated exposure control for dose reduction was used. CONTRAST: CT scan of the chest, abdomen and pelvis is performed with Oral Contrast and with IV Contrast, patien t injected with 100 mL of Isovue 300. FINDINGS: LUNGS: Moderate centrilobular and paraseptal emphysematous change redemonstrated. There are redemonst rated calcified pleural plaques which may represent prior asbestos exposure. There is redemonstrated thickening along the major fissure in the right upper lung (4:28) which is not significantly changed versus 12/09/2019. There is redemonstrated thickening along the left major fissure in the upper lung ( 4:17) and mid lung (4:26) which is unchanged. Biapical pleural thickening not significantly changed. A 4 mm pulmonary nodule of the left upper lobe (4:17) is somewhat more conspicuous, measuring 3 mm on 04/06/2019 comparison. 8 mm pulmonary nodule of the left lower lobe unchanged (4:27). There is no pleural effusion or pneumothorax seen. The tracheobronchial tree is patent. MEDIASTINUM: Right-sided MediPort distal tip in the distal superior vena cava. No axillary, mediastin al, or hilar lymphadenopathy. Cardiac size normal. No pericardial effusion. Calcified coronary artery disease. No thoracic aortic aneurysm. Redemonstrated occlusion of the left subclavian artery proxima lly (3:12). LIVER: Redemonstrated too small to characterize hypodense lesion of the right liver. BILIARY SYSTEM: No intrahepatic or extrahepatic biliary ductal dilatation. Gallbladder contracted. PANCREAS: Normal. SPLEEN: Normal. Splenule. ADRENALS: Normal. KIDNEYS: Normal right kidney. Redemonstrated subcentimeter too small to characterize hypodense lesion s of the left kidney. No hydronephrosis or hydroureter bilaterally. BOWEL: Small hiatal hernia. No obstruction or thickening. Sigmoid colon anastomosis appears intact. PERITONEUM: No pneumoperitoneum. No free fluid. LYMPH NODES: No lymphadenopathy. PELVIS: Normal. VASCULATURE: No abdominal aortic aneurysm. Calcified atherosclerotic disease. MUSCULOSKELETAL: Osteoporosis. Redemonstrated old superior endplate deformity of L4. Degenerative ch anges of the spine. IMPRESSION: 1. 4 mm pulmonary nodule of the left upper lobe is somewhat more conspicuous versus 12/09/[address] comparison, previously measuring 3 mm. Attention on follow-up imaging. 2. Additional areas of pulmonary nodularity and pleural thickening unchanged. 3. Emphysematous change and calcified pleural plaques redemonstrated. 4. No evidence of metastatic disease in the abdomen or pelvis.
== END | disposition home or self-care (01) ==
LOC: RADPROMAIN 09:38
PROVIDERS: ATTEND Internal Medicine Hematology & Oncology
DX: R91.8 Other nonspecific abnormal finding of lung field (principal); C34.91 Malignant neoplasm of unspecified part of right bronchus or lung
CPT/HCPCS: 82565; 84520; 71260; 74177; J1642; Q9967

== ENCOUNTER → 2020-03-27 | Outpatient (CLI) | payer MEDICARE ==
--- NOTE | 2020-03-27 14:42 | XR ---
EXAMINATION TYPE: XR KUB DATE OF EXAM: 03/27/2020 COMPARISON: CT 03/09/2020 INDICATION: Lung cancer diarrhea TECHNIQUE: Single view abdomen supine view FINDINGS: There is a normal bowel gas pattern. Psoas margins are normal. No organomegaly is present. Calcifications along the bilateral diaphragms. There may be some compression deformity of L4. This wa s present on CT of 03/09/2020. Osseous structures are otherwise unremarkable. IMPRESSION: 1. No acute changes evident. 2. There may be a superior endplate compression of L4.
== END | disposition home or self-care (01) ==
LOC: RADXRMAIN 12:10
PROVIDERS: ATTEND Internal Medicine Hematology & Oncology
DX: C34.91 Malignant neoplasm of unspecified part of right bronchus or lung (principal); E03.9 Hypothyroidism, unspecified; G47.00 Insomnia, unspecified; I10 Essential (primary) hypertension
CPT/HCPCS: 74018

== ENCOUNTER → 2020-04-15 | Outpatient (CLI) | payer MEDICARE ==
--- NOTE | 2020-04-15 12:11 | MR ---
EXAMINATION TYPE: MR brain wo/w con DATE OF EXAM: 04/15/2020 11:51 AM COMPARISON: 10/09/2019 HISTORY: Lung cancer, blindness x 1 year CONTRAST: Patient received 5.5 mL intravenous Gadavist gadolinium contrast. Multiplanar and multispin-echo imaging of the brain was performed . Pre and post contrast enhanced i mages are obtained. The ventricles, basal cisterns and sulci overlying the cerebral convexities are mildly enlarged. There is evidence of mild periventricular white matter ischemic demyelination. Remote deep white matter insults are also noted. No acute edema is seen on diffusion weighted imaging. There is no evidence for midline shift or mass effect. Acute intracranial hemorrhage or extra-axial collection is not evident. No enhancing lesions are seen. Moderate opacification left maxillary sinus. Mastoid air cells are well-aerated. IMPRESSION: Age-related atrophic and chronic small vessel ischemic change. No acute intracranial process at this time. No enhancing lesions are seen.
== END | disposition home or self-care (01) ==
LOC: RADMRIMAIN 10:17
PROVIDERS: ATTEND Internal Medicine Hematology & Oncology
DX: I67.82 Cerebral ischemia (principal); G31.1 Senile degeneration of brain, not elsewhere classified; C34.91 Malignant neoplasm of unspecified part of right bronchus or lung
CPT/HCPCS: 70553

== ENCOUNTER → 2020-06-22 | Outpatient (CLI) | payer MEDICARE ==
--- NOTE | 2020-06-22 15:41 | CT ---
EXAMINATION TYPE: CT chest w con DATE OF EXAM: 06/22/2020 COMPARISON: CT March 09, 2020 and older studies HISTORY: Lung cancer. CT DLP: 135.3 mGycm. Automated Exposure Control for Dose Reduction was Utilized. TECHNIQUE: CT scan of the thorax is performed following with IV Contrast, patient injected with 100 mL of Isovue M300. FINDINGS: LUNGS: Background mild to moderate underlying emphysematous change redemonstrated. Mild to moderate r ight greater than left biapical pleural/parenchymal scarring extending posteriorly redemonstrated and stable. Calcified plaques in both lung bases again seen. Additional scattered calcified bilateral pl eural plaques redemonstrated. Stable 3 mm left upper lung nodule axial image 16. Stable 7 mm scarlike opacity left lower lobe superiorly axial image 22. Small nodularity along the left and right major f issures is stable. No new suspicious noncalcified nodules or masses. No pleural effusion or pneumotho rax seen bilaterally. MEDIASTINUM: Stable prominent pericarinal 1.1 x 0.9 cm lymph node axial image 23 and similar sized ly mph node just inferior to the sac axial image 25. No new greater than 1 cm adenopathy. Coronary arter y calcification redemonstrated. No cardiomegaly or pericardial effusion is seen. 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 OTHER: Stable right internal jugular Mediport catheter. Exaggerated thoracic kyphosis in the upper th oracic spine. Slight underlying scoliotic curvature. IMPRESSION: Overall stable findings. Evidence of prior asbestos exposure. Moderate emphysematous whitehead ge. Stable small scattered nodules. No new suspicious or enlarging nodules. Stable borderline thoraci c lymph nodes.
== END | disposition home or self-care (01) ==
LOC: RADPROMAIN 13:48
PROVIDERS: ATTEND Internal Medicine Hematology & Oncology
DX: J43.9 Emphysema, unspecified (principal); R91.8 Other nonspecific abnormal finding of lung field; Z77.090 Contact with and (suspected) exposure to asbestos; C34.91 Malignant neoplasm of unspecified part of right bronchus or lung
CPT/HCPCS: 82565; 84520; 71260; J1642; Q9967

== ENCOUNTER 2020-07-14 08:12 | Emergency (ER) | payer MEDICARE ==
[2020-07-14 08:19] VITALS: BP 119/55; PULSE 65; RESP 16; TEMP 98
[2020-07-14] MEDS ORDERED: SODIUM CHLORIDE 0.9% 1,000 ML IV STA ×2 (08:22)
--- NOTE | 2020-07-14 08:24 | ED ---
Weakness HPI - General Chief complaint: Weakness Stated complaint: weakness Time Seen by Provider: 07/14/20 08:12 Source: patient, RN notes reviewed Mode of arrival: ambulatory Limitations: no limitations - History of Present Illness Initial comments: This is a 85-year-old male with a history of bilateral lung cancer who is status post radiation treatment and chemotherapy who states he try to get up today and became very weak and dizzy. He almost fell but he Himself He States He Had a Crawl Back to Bed Today. He Denies Any Focal Weakness Headache Neck Pain or Injury of Any Sort. He Is Feels Generally Weak. No Palpitations. MD Complaint: generalized weakness - Related Data Home Medications Medication Instructions Recorded Confirmed Allopurinol [Zyloprim] 300 mg PO DAILY 01/06/17 07/14/20 Cyanocobalamin [Vitamin B-12] 500 mcg PO DAILY 01/06/17 07/14/20 Diazepam [Valium] 5 - 10 mg PO HS PRN 01/06/17 07/14/20 Lovastatin [Mevacor] 40 mg PO HS 01/06/17 07/14/20 Tiotropium [place] [Spiriva] 1 cap INHALATION RT-DAILY 01/06/17 07/14/20 Acetaminophen Tab [Tylenol Tab] 1,000 mg PO Q6HR PRN 07/14/20 07/14/20 Ergocalciferol (Vitamin D2) 50 mcg PO DAILY 07/14/20 07/14/20 [Vitamin D2 (2000 Iu)] Levothyroxine Sodium [Synthroid] 25 mcg PO DAILY 07/14/20 07/14/20 Melatonin 5 mg PO HS 07/14/20 07/14/20 Pantoprazole Sodium [Protonix] 40 mg PO DAILY 07/14/20 07/14/20 Triamcinolone 0.1% Cream [Kenalog 1 applicatio TOPICAL BID PRN 07/14/20 07/14/20 0.1% Cream] Vit C/E/Zn/Coppr/Lutein/Zeaxan 1 cap PO DAILY 07/14/20 07/14/20 [Preservision Areds 2 Softgel] Allergies Allergy/AdvReac Type Severity Reaction Status Date / Time No Known Allergies Allergy Verified 07/14/20 08:52 Review of Systems ROS Statement: Those systems with pertinent positive or pertinent negative responses have been documented in the HPI. ROS Other: All systems not noted in ROS Statement are negative. Past Medical History Past Medical History: Cancer, COPD, Eye Disorder, GERD/Reflux, Hyperlipidemia, Pneumonia Additional Past Medical History / Comment(s): hx Melanoma,COLON CANCER HAD SX AND CHEMO 2001, GOUT, PAST BROKEN WRISTS LT REQUIRED SX,limited vision-uses magnifying glass and flashlight to read. History of Any Multi-Drug Resistant Organisms: None Reported Past Surgical History: Appendectomy, Bowel Resection, Orthopedic Surgery Additional Past Surgical History / Comment(s): SONALI CATARACTS-LENS IMPLANTS, LT WRIST SX REPAIED HAD PIN BUT SINCE REMOVED., COLONOSCOPY, EGD, LOW ANTERIOR RESECTION FOR STAGE 3 CANCER. Past Anesthesia/Blood Transfusion Reactions: No Reported Reaction Additional Past Anesthesia/Blood Transfusion Reaction / Comment(s): PT LIVES ALONE IN SINGLE LEVEL HOME THAT HAS 1 FRONT STEP. NO PETS. NO OUTSIDE SERVICES RECEIVED. NO MEDICAL EQUIPMENT. PT SERVED IN THE [employer]. 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 Past Psychological History: No Psychological Hx Reported Smoking Status: Never smoker Past Alcohol Use History: None Reported Past Drug Use History: None Reported - Past Family History Mother Family Medical History: Cancer Additional Family Medical History / Comment(s): BONE CANCER Father Additional Family Medical History / Comment(s): WORKED IN [employer] SINCE AGE 13- AT AGE 73 FROM "NATURAL CAUSES" General Exam - General Exam Comments Initial Comments: This is a well-developed asthenic appearing male who is awake alert oriented 3 Limitations: no limitations General appearance: alert, in no apparent distress Head exam: Present: atraumatic, normocephalic, normal inspection Eye exam: Present: normal appearance, PERRL, EOMI. Absent: scleral icterus, conjunctival injection, periorbital swelling ENT exam: Present: mucous membranes dry Neck exam: Present: normal inspection, full ROM, other. Absent: tenderness, meningismus, lymphadenopathy Respiratory exam: Present: normal lung sounds bilaterally. Absent: respiratory distress, wheezes, rales, rhonchi, stridor Cardiovascular Exam: Present: regular rate, normal rhythm, normal heart sounds. Absent: systolic murmur, diastolic murmur, rubs, gallop, clicks GI/Abdominal exam: Present: soft, normal bowel sounds. Absent: distended, tenderness, guarding, rebound, rigid Extremities exam: Present: normal inspection, full ROM, normal capillary refill. Absent: tenderness, pedal edema, joint swelling, calf tenderness Back exam: Present: normal inspection Neurological exam: Present: alert, oriented X3, CN II-XII intact Psychiatric exam: Present: normal affect, normal mood Skin exam: Present: warm, dry, intact, normal color. Absent: rash Course Vital Signs 07/14/20 08:15 Temperature 98.0 F Pulse Rate 65 Respiratory 16 Rate Blood Pressure 119/55 O2 Sat by Pulse 98 Oximetry Medical Decision Making - Medical Decision Making Patient was feeling much improved after IV fluids he was able ambulate with no problem when he had a rail. After long discussion with the patient and his family was present he would like to go home he does have access to a cane and AIDS at home for walking. We did caution that there is any problems he should come back for further evaluation. The presentation at this time is consistent with a clinical dehydration. He was encouraged to increase oral fluids - Lab Data Result diagrams: 07/14/20 09:11 07/14/20 09:11 Lab Results 07/14/20 07/14/20 07/14/20 Range/Units 09:11 09:11 10:02 WBC 4.6 (3.8-10.6) k/uL RBC 3.72 L (4.30-5.90) m/uL Hgb 12.4 L (13.0-17.5) gm/dL Hct 36.7 L (39.0-53.0) % MCV 98.8 (80.0-100.0) fL MCH 33.3 (25.0-35.0) pg MCHC 33.7 (31.0-37.0) g/dL RDW 14.6 (11.5-15.5) % Plt Count 118 L (150-450) k/uL MPV 7.5 Neutrophils % 74 % Lymphocytes % 13 % Monocytes % 7 % Eosinophils % 4 % Basophils % 1 % Neutrophils # 3.4 (1.3-7.7) k/uL Lymphocytes # 0.6 L (1.0-4.8) k/uL Monocytes # 0.3 (0-1.0) k/uL Eosinophils # 0.2 (0-0.7) k/uL Basophils # 0.0 (0-0.2) k/uL Sodium 139 (137-145) mmol/L Potassium 4.4 (3.5-5.1) mmol/L Chloride 102 (98-107) mmol/L Carbon Dioxide 31 H (22-30) mmol/L Anion Gap 6 mmol/L BUN 20 (9-20) mg/dL Creatinine 0.99 (0.66-1.25) mg/dL Est GFR (CKD-EPI)AfAm 80 (>60 ml/min/1.73 sqM) Est GFR (CKD-EPI)NonAf 69 (>60 ml/min/1.73 sqM) Glucose 91 (74-99) mg/dL Calcium 9.3 (8.4-10.2) mg/dL Magnesium 1.9 (1.6-2.3) mg/dL Total Bilirubin 0.4 (0.2-1.3) mg/dL AST 21 (17-59) U/L ALT 10 (4-49) U/L Alkaline Phosphatase 45 (38-126) U/L Creatine Kinase 27 L (55-170) U/L Total Protein 6.2 L (6.3-8.2) g/dL Albumin 3.8 (3.5-5.0) g/dL Urine Color Light Yellow Urine Appearance Clear (Clear) Urine pH 7.5 (5.0-8.0) Ur Specific [place] 1.009 (1.001-1.035) Urine Protein Negative (Negative) Urine Glucose (UA) Negative (Negative) Urine Ketones Negative (Negative) Urine Blood Negative (Negative) Urine Nitrite Negative (Negative) Urine Bilirubin Negative (Negative) Urine Urobilinogen <2.0 (<2.0) mg/dL Ur Leukocyte Esterase Negative (Negative) - Radiology Data Radiology results: report reviewed (Imaging reviewed as well as report no acute findings seen.), image reviewed Disposition Clinical Impression: Dehydration, Generalized weakness, History of lung cancer Disposition: HOME SELF-CARE Condition: Good Instructions (If sedation given, give patient instructions): Dehydration (ED), Weakness (ED) Is patient prescribed a controlled substance at d/c from ED?: No Referrals: Jean Paul Ruvalcaba MD [Primary Care Provider] - 1-2 days
--- NOTE | 2020-07-14 09:37 | XR ---
EXAMINATION TYPE: XR chest 2V DATE OF EXAM: 07/14/2020 COMPARISON: Chest CT June 22, 2020 and older studies HISTORY: Known lung cancer with weakness. TECHNIQUE: 2 frontal. And lateral views of the chest are obtained. FINDINGS: There is persistent moderate to advanced underlying emphysematous change with scattered ca lcified pleural plaques bilaterally. No new focal airspace opacity, pleural effusion, or pneumothorax seen bilaterally. The cardiac silhouette size remains within normal limits with atherosclerotic whitehead ges aortic knob. The osseous structures remain demineralized. Overlying EKG leads. Stable right int ernal jugular Mediport catheter terminating in SVC. IMPRESSION: Chronic changes without acute pulmonary process. No significant change from most recent CT.
[2020-07-14 09:41] LABS: Basophils % (A) 1 %; Eosinophils # (A) 0.2 k/uL (0-0.7); Eosinophils % (A) 4 %; HCT 36.7 % (39.0-53.0); HGB 12.4 gm/dL (13.0-17.5); Lymphocytes # (A) 0.6 k/uL (1.0-4.8); Lymphocytes % (A) 13 %; MCH 33.3 pg (25.0-35.0); MCHC 33.7 g/dL (31.0-37.0); MCV 98.8 fL (80.0-100.0); Mean Platelet Volume 7.5; Monocytes # (A) 0.3 k/uL (0-1.0); Monocytes % (A) 7 %; Neutrophils # (A) 3.4 k/uL (1.3-7.7); Neutrophils % (A) 74 %; Platelet Count 118 k/uL (150-450); RBC 3.72 m/uL (4.30-5.90); RDW 14.6 % (11.5-15.5); WBC 4.6 k/uL (3.8-10.6)
[2020-07-14 09:56] LABS: Albumin 3.8 g/dL (3.5-5.0); Calcium 9.3 mg/dL (8.4-10.2); Magnesium 1.9 mg/dL (1.6-2.3); Potassium 4.4 mmol/L (3.5-5.1); Total Bilirubin 0.4 mg/dL (0.2-1.3); Total Protein 6.2 g/dL (6.3-8.2)
[2020-07-14 10:10] LABS: Appearance,Urine Clear (Clear); Bilirubin,Urine Negative (Negative); Blood,Urine Negative (Negative); Color,Urine Light Yellow; Glucose,Urine (UA) Negative (Negative); Ketones,Urine Negative (Negative); Leukocyte Esterase,Urine Negative (Negative); Nitrite,Urine Negative (Negative); PH, Urine 7.5 (5.0-8.0); Protein,Urine Negative (Negative); Specific Gravity,Urine 1.009 (1.001-1.035); Urobilinogen,Urine <2.0 mg/dL (<2.0)
== END 2020-07-14 13:00 | disposition home or self-care (01) ==
LOC: EC 08:12
DX: R53.1 Weakness (principal); E86.0 Dehydration; M10.9 Gout, unspecified; E78.5 Hyperlipidemia, unspecified; J44.9 Chronic obstructive pulmonary disease, unspecified; K21.9 Gastro-esophageal reflux disease without esophagitis; Z79.899 Other long term (current) drug therapy; Z79.890 Hormone replacement therapy; Z92.3 Personal history of irradiation; Z85.118 Personal history of other malignant neoplasm of bronchus and lung; Z92.21 Personal history of antineoplastic chemotherapy; Z85.820 Personal history of malignant melanoma of skin; Z85.038 Personal history of other malignant neoplasm of large intestine
CPT/HCPCS: 36415; 71046; 80053; 81003; 82550; 83735; 85025; 93005; 96360; 99285

== ENCOUNTER 2020-07-15 12:41 | Observation (INO) | payer MEDICARE ==
[2020-07-15] MEDS ORDERED: MECLIZINE 25 MG TAB PO STA (14:31)
--- NOTE | 2020-07-15 15:00 | CT ---
EXAMINATION TYPE: CT brain wo con DATE OF EXAM: 07/15/2020 COMPARISON: HISTORY: Weakness and dizziness. CT DLP: 1129.4 mGycm Automated exposure control for dose reduction was used. FINDINGS: Mild generalized degenerative change. No acute hemorrhage or mass effect. No midline shift. Calvarium intact. Changes of chronic sinusitis noted. IMPRESSION: Degenerative change
--- NOTE | 2020-07-15 15:06 | ED ---
General Adult HPI - General Chief complaint: Dizziness Stated complaint: revisit - dizziness, frequent falls Time Seen by Provider: 07/15/20 13:10 Source: patient, RN notes reviewed, old records reviewed Mode of arrival: wheelchair Limitations: no limitations - History of Present Illness Initial comments: This is an 85-year-old male who presents emergency Department for the second day in a row because of dizziness. Patient states anytime he gets up he feels very dizzy. Patient states he does have lung cancer and is completely blind. Patient states he feels like his been a fall over when he starts to walk he does not feel like he is going to pass out. Patient denies any headache patient denies numbness weakness. Patient denies any chest pain difficulty breathing first breath. His any palpitations. Patient denies any recent fever chills or cough per patient denies abdominal pain patient has nausea vomiting diarrhea. Patient states his BASELINE IN BED HE FEELS MUCH BETTER. - Related Data Home Medications Medication Instructions Recorded Confirmed Allopurinol [Zyloprim] 300 mg PO DAILY 01/06/17 07/14/20 Cyanocobalamin [Vitamin B-12] 500 mcg PO DAILY 01/06/17 07/14/20 Diazepam [Valium] 5 - 10 mg PO HS PRN 01/06/17 07/14/20 Lovastatin [Mevacor] 40 mg PO HS 01/06/17 07/14/20 Tiotropium [place] [Spiriva] 1 cap INHALATION RT-DAILY 01/06/17 07/14/20 Acetaminophen Tab [Tylenol Tab] 1,000 mg PO Q6HR PRN 07/14/20 07/14/20 Ergocalciferol (Vitamin D2) 50 mcg PO DAILY 07/14/20 07/14/20 [Vitamin D2 (2000 Iu)] Levothyroxine Sodium [Synthroid] 25 mcg PO DAILY 07/14/20 07/14/20 Melatonin 5 mg PO HS 07/14/20 07/14/20 Pantoprazole Sodium [Protonix] 40 mg PO DAILY 07/14/20 07/14/20 Triamcinolone 0.1% Cream [Kenalog 1 applicatio TOPICAL BID PRN 07/14/20 07/14/20 0.1% Cream] Vit C/E/Zn/Coppr/Lutein/Zeaxan 1 cap PO DAILY 07/14/20 07/14/20 [Preservision Areds 2 Softgel] Allergies Allergy/AdvReac Type Severity Reaction Status Date / Time No Known Allergies Allergy Verified 07/15/20 13:02 Review of Systems ROS Statement: Those systems with pertinent positive or pertinent negative responses have been documented in the HPI. ROS Other: All systems not noted in ROS Statement are negative. Past Medical History Past Medical History: Cancer, COPD, Eye Disorder, GERD/Reflux, Hyperlipidemia, Pneumonia Additional Past Medical History / Comment(s): hx Melanoma,COLON CANCER HAD SX AND CHEMO 2001, GOUT, PAST BROKEN WRISTS LT REQUIRED SX,limited vision-uses magnifying glass and flashlight to read. History of Any Multi-Drug Resistant Organisms: None Reported Past Surgical History: Appendectomy, Bowel Resection, Orthopedic Surgery Additional Past Surgical History / Comment(s): SONALI CATARACTS-LENS IMPLANTS, LT WRIST SX REPAIED HAD PIN BUT SINCE REMOVED., COLONOSCOPY, EGD, LOW ANTERIOR RESECTION FOR STAGE 3 CANCER. Past Anesthesia/Blood Transfusion Reactions: No Reported Reaction Additional Past Anesthesia/Blood Transfusion Reaction / Comment(s): PT LIVES ALONE IN SINGLE LEVEL HOME THAT HAS 1 FRONT STEP. NO PETS. NO OUTSIDE SERVICES RECEIVED. NO MEDICAL EQUIPMENT. PT SERVED IN THE [employer]. 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 Past Psychological History: No Psychological Hx Reported Smoking Status: Never smoker Past Alcohol Use History: None Reported Past Drug Use History: None Reported - Past Family History Mother Family Medical History: Cancer Additional Family Medical History / Comment(s): BONE CANCER Father Additional Family Medical History / Comment(s): WORKED IN [employer] SINCE AGE 13- AT AGE 73 FROM "NATURAL CAUSES" General Exam - General Exam Comments Initial Comments: GENERAL: Patient is well-developed and well-nourished. Patient is nontoxic and well- hydrated and is in no acute distress. ENT: Neck is soft and supple. No significant lymphadenopathy is noted. Oropharynx is clear. Moist mucous membranes. Neck has full range of motion without eliciting any pain. EYES: The sclera were anicteric and conjunctiva were pink and moist. Extraocular movements were intact. Eyelids were unremarkable. PULMONARY: Unlabored respirations. Good breath sounds bilaterally. No audible rales rhonchi or wheezing was noted. CARDIOVASCULAR: There is a regular rate and rhythm without any murmurs gallops or rubs. ABDOMEN: Soft and nontender with normal bowel sounds. SKIN: Skin is clear with no lesions or rashes and otherwise unremarkable. NEUROLOGIC: Patient is alert and oriented x3. Cranial nerves II through XII are grossly intact. Motor and sensory are also intact. Normal speech, volume and content. Symmetrical smile. MUSCULOSKELETAL: Normal extremities with adequate strength and full range of motion. No lower extremity swelling or edema. No calf tenderness. LYMPHATICS: No significant lymphadenopathy is noted PSYCHIATRIC: Normal psychiatric evaluation. Limitations: no limitations Course Vital Signs 07/15/20 13:00 Temperature 97.6 F Pulse Rate 80 Respiratory 17 Rate Blood Pressure 126/67 O2 Sat by Pulse 100 Oximetry Medical Decision Making - Medical Decision Making EKG shows normal sinus rhythm at 77 bpm MO interval is on a 42 QRS 76 QT interval 382 QTC is 432. Patient's EKG shows no ST segment elevation or depression. CT of the brain shows no acute abnormality. Patient received Antivert and emergency department however upon ambulation patient was still very unstable and felt as though he couldn't go home. I spoke with Dr. Ward agreed to admit the patient admitted the patient wrote admitting orders. Disposition Clinical Impression: Dizziness, Difficulty in walking Disposition: ADMITTED IP TO THIS HOSP Referrals: Jean Paul Ruvalcaba MD [Primary Care Provider] - 1-2 days Time of Disposition: 16:07
[2020-07-15 16:29] LABS: Basophils % (A) 0 %; Eosinophils # (A) 0.4 k/uL (0-0.7); Eosinophils % (A) 4 %; HGB 11.8 gm/dL (13.0-17.5); Lymphocytes # (A) 0.7 k/uL (1.0-4.8); Lymphocytes % (A) 8 %; MCH 31.4 pg (25.0-35.0); MCHC 31.8 g/dL (31.0-37.0); MCV 98.7 fL (80.0-100.0); Macrocytosis Slight; Mean Platelet Volume 7.4; Monocytes # (A) 0.4 k/uL (0-1.0); Monocytes % (A) 4 %; Neutrophils # (A) 7.5 k/uL (1.3-7.7); Neutrophils % (A) 83 %; Platelet Count 115 k/uL (150-450); RBC 3.74 m/uL (4.30-5.90); RDW 15.1 % (11.5-15.5); WBC 9.1 k/uL (3.8-10.6)
[2020-07-15 16:38] LABS: ALT 10 U/L (4-49); AST 20 U/L (17-59); African American GFR (CKD) >90 (>60 ml/min/1.73 sqM); Albumin 3.9 g/dL (3.5-5.0); Alkaline Phosphatase 52 U/L (38-126); Anion Gap 7 mmol/L; Blood Urea Nitrogen 19 mg/dL (9-20); Calcium 9.4 mg/dL (8.4-10.2); Carbon Dioxide 30 mmol/L (22-30); Chloride 101 mmol/L (98-107); Glucose 86 mg/dL (74-99); Non-African American GFR(CKD) 81 (>60 ml/min/1.73 sqM); Potassium 4.1 mmol/L (3.5-5.1); Sodium 138 mmol/L (137-145); Total Bilirubin 0.4 mg/dL (0.2-1.3); Total Protein 6.3 g/dL (6.3-8.2)
[2020-07-15] MEDS ORDERED: SODIUM CHLORIDE 0.9% 1,000 ML IV ONE (17:28)
[2020-07-15] MEDS ORDERED: MECLIZINE 25 MG TAB PO PRN (17:30)
[2020-07-16] MEDS ORDERED: ACETAMINOPHEN TAB 500 MG TAB PO PRN (00:31)
[2020-07-16] MEDS ORDERED: LEVOTHYROXINE 25 MCG TAB PO SCH (06:30)
[2020-07-16] MEDS: IPRATROPIUM 0.5 MG/2.5 ML NEBU INHALATION SCH ×2 (07:50→11:19)
[2020-07-16 08:28] VITALS: BP 90/53; RESP 20; TEMP 99
[2020-07-16] MEDS ORDERED: CYANOCOBALAMIN 500 MCG TAB PO SCH (09:00)
[2020-07-16] MEDS ORDERED: CHOLECALCIFEROL 25 MCG (1000 IU) TABLET PO SCH (09:00)
[2020-07-16] MEDS ORDERED: allopurinoL 300 MG TAB PO SCH (09:00)
[2020-07-16] MEDS ORDERED: NON FORMULARY DRUG (Vit C/E/Zn/Coppr/Lutein/Zeaxan [Preservision Areds 2 Softgel] 1 EACH C PO SCH (09:00)
[2020-07-16] MEDS ORDERED: PANTOPRAZOLE 40 MG TABLET PO SCH (09:00)
[2020-07-16 09:46] VITALS: BMI 16.2
[2020-07-16 11:23] VITALS: PULSE 76
[2020-07-16] MEDS ORDERED: MELATONIN 5 MG TABLET PO SCH (21:00)
[2020-07-16] MEDS ORDERED: ATORVASTATIN 10 MG TAB PO SCH (21:00)
--- NOTE | 2020-07-16 22:48 | P.HPIM ---
History of Present Illness H&P Date: 07/16/20 Chief Complaint: Dizziness History of presenting complaint: This is a pleasant 85-year-old patient of . Patient is blind. On his current some light perception. Can't see a couple of colors including yellow. Lives by himself. Patient started having dizziness. What he describes as a head spinning. It was slowly getting better. Finally presented to the ER. It was not related to position. Not related to getting up. No ringing in the ears. No fever or congestion. Did receive some Antivert in the ER. Feeling better this morning. No arm or leg weakness. No change in walking, nor speech Review of systems: GEN.: Tired EYES: [Blind HEENT: None NECK: None RESPIRATORY: None CARDIOVASCULAR: None GASTROINTESTINAL: None GENITOURINARY: None MUSCULOSKELETAL: None LYMPHATICS: None HEMATOLOGICAL: None PSYCHIATRY: None NEUROLOGICAL: As above Past medical history to include: COPD, decreased vision, GERD, hyperlipidemia, colon cancer treated with surgery and chemotherapy 2001, gout, lung cancer in 2019 Social history: Lives alone. Also worked [employer]. Had multiple jobs. Started smoking at age of 16 and stopped in 2012. One half pack a day. Physical examination: VITAL SIGNS: 97.6, 80, 17, 126/67, 100% on room air upon presentation GENERAL: BMI 16.2, laying in bed, awake. EYES: Pupils equal. Conjunctiva benjamín patient limited to perception of light and yellow color l. HEENT: External appearance of nose and ears normal, oral cavity grossly normal. NECK: JVD not raised; masses not palpable. HEART: First and second heart sounds are normal; no edema. LUNGS: Respiratory rate normal; decreased breath sounds. ABDOMEN: Soft, nontender, liver spleen not palpable, no masses palpable. PSYCH: Alert and oriented x3; mood and affect normal. NEUROLOGICAL: Cranial nerves grossly intact; no facial asymmetry, power and sensation grossly intact. LYMPHATICS: No lymph nodes palpable in the axilla and neck INVESTIGATIONS, reviewed in the clinical context: White count 9.1 hemoglobin 11.8 platelets 15 potassium 4.1 creatinine 0.82 Coronavirus [PCR]-not detected EKG tracing personally reviewed by me-normal sinus rhythm Computed tomography scan of the brain-mild degenerative changes Assessment and plan: -This is a patient has had 3 days of dizziness. Blood has been slowly getting better. Pretty much resolved this morning. Has no other focal symptoms. No change in gait speech headache. Patient did feel better after getting some Antivert. Does not appear to be positional. Not with getting up. Likely low- grade vestibulitis -COPD in a previous smoker, on Spiriva -Legally blind. Patient only has perception to light and can see some colors including yellow. -GERD, on Protonix -Hyperlipidemia, on Mevacor -History of colon cancer with surgery and chemotherapy in 2001 -Gout, on allopurinol -History of lung cancer in 2019,. Past Medical History Past Medical History: Cancer, COPD, Eye Disorder, GERD/Reflux, Hyperlipidemia, Pneumonia Additional Past Medical History / Comment(s): hx Melanoma,COLON CANCER HAD SX AND CHEMO 2001, GOUT, PAST BROKEN WRISTS LT REQUIRED SX,limited vision-uses magnifying glass and flashlight to read. Lung Cancer 2019 History of Any Multi-Drug Resistant Organisms: None Reported Past Surgical History: Appendectomy, Bowel Resection, Orthopedic Surgery Additional Past Surgical History / Comment(s): SONALI CATARACTS-LENS IMPLANTS, LT WRIST SX REPAIED HAD PIN BUT SINCE REMOVED., COLONOSCOPY, EGD, LOW ANTERIOR RESECTION FOR STAGE 3 CANCER. Past Anesthesia/Blood Transfusion Reactions: No Reported Reaction Additional Past Anesthesia/Blood Transfusion Reaction / Comment(s): PT LIVES ALONE IN SINGLE LEVEL HOME THAT HAS 1 FRONT STEP. NO PETS. NO OUTSIDE SERVICES RECEIVED. NO MEDICAL EQUIPMENT. PT SERVED IN THE [employer]. HELD SEVERAL JOBS IN PAST MOST [employer]ATE[employer] ONE BEFORE RETIRING WAS [employer] FOR [employer]. Past Psychological History: No Psychological Hx Reported Additional Psychological History / Comment(s): PT LIVES ALONE IN SINGLE LEVEL HOME THAT HAS 1 FRONT STEP. NO PETS. NO OUTSIDE SERVICES RECEIVED. NO MEDICAL EQUIPMENT. PT SERVED IN THE [employer]. HELD SEVERAL JOBS IN PAST MOST [employer] ONE BEFORE RETIRING WAS [employer] FOR [employer]. Smoking Status: Former smoker Past Alcohol Use History: None Reported Additional Past Alcohol Use History / Comment(s): STARTED SMOKING AT AGE 16 AND QUIT 2012. SMOKED 1.5 PPD. Past Drug Use History: None Reported - Past Family History Mother Family Medical History: Cancer Additional Family Medical History / Comment(s): BONE CANCER Father Additional Family Medical History / Comment(s): WORKED IN [employer] SINCE AGE 13- AT AGE 73 FROM "[employer]" Medications and Allergies Home Medications Medication Instructions Recorded Confirmed Type Allopurinol [Zyloprim] 300 mg PO DAILY 01/06/17 07/15/20 History Cyanocobalamin [Vitamin B-12] 500 mcg PO DAILY 01/06/17 07/15/20 History Diazepam [Valium] 5 - 10 mg PO HS PRN 01/06/17 07/15/20 History Lovastatin [Mevacor] 40 mg PO HS 01/06/17 07/15/20 History Tiotropium [place] [Spiriva] 1 cap INHALATION RT-DAILY 01/06/17 07/15/20 History Acetaminophen Tab [Tylenol] 1,000 mg PO Q6HR PRN 07/14/20 07/15/20 History Levothyroxine Sodium [Synthroid] 25 mcg PO DAILY 07/14/20 07/15/20 History Melatonin 5 mg PO HS 07/14/20 07/15/20 History Pantoprazole Sodium [Protonix] 40 mg PO DAILY 07/14/20 07/15/20 History Triamcinolone 0.1% Cream [Kenalog 1 applicatio TOPICAL BID PRN 07/14/20 07/15/20 History 0.1% Cream] Vit C/E/Zn/Coppr/Lutein/Zeaxan 1 cap PO DAILY 07/14/20 07/15/20 History [Preservision Areds 2 Softgel] Cholecalciferol [Vitamin D3 (25 50 mcg PO DAILY 07/15/20 07/15/20 History Mcg = 1000 Iu)] Meclizine [Antivert] 25 mg PO TID #15 tab 07/16/20 Rx Allergies Allergy/AdvReac Type Severity Reaction Status Date / Time No Known Allergies Allergy Verified 07/15/20 16:38 Physical Exam Vitals: Vital Signs Temp Pulse Pulse Pulse Resp BP BP 07/16/20 08:03 99.0 F 85 20 90/53 07/16/20 08:01 76 07/16/20 07:50 76 07/15/20 23:47 100/55 07/15/20 19:37 07/15/20 19:30 97.6 F 78 16 07/15/20 18:57 80 16 127/65 07/15/20 16:23 66 16 137/63 07/15/20 13:00 97.6 F 80 17 126/67 BP BP BP Pulse Ox 07/16/20 08:03 95 07/16/20 08:01 07/16/20 07:50 07/15/20 23:47 118/58 118/50 07/15/20 19:37 143/62 07/15/20 19:30 143/62 98 07/15/20 18:57 98 07/15/20 16:23 99 07/15/20 13:00 100 Intake and Output 07/15/20 07/16/20 07/16/20 22:59 06:59 14:59 Intake Total 240 Output Total 50 450 275 Balance -50 -450 -35 Intake: Oral 240 Output: Urine 50 450 275 Other: Voiding Method Urinal Toilet Urinal # Voids 1 # Bowel Movements 0 Weight 51.256 kg 51.256 kg Results CBC & Chem 7: 07/15/20 16:23 07/15/20 16:23 Labs: Abnormal Lab Results - Last 24 Hours (Table) 07/15/20 Range/Units 16:23 RBC 3.74 L (4.30-5.90) m/uL Hgb 11.8 L (13.0-17.5) gm/dL Hct 37.0 L (39.0-53.0) % Plt Count 115 L (150-450) k/uL Lymphocytes # 0.7 L (1.0-4.8) k/uL Thrombosis Risk Factor Assmnt - Choose All That Apply Each Risk Factor Represents 3 Points: Age 75 years or older Thrombosis Risk Factor Assessment Total Risk Factor Score: 3 Thrombosis Risk Factor Assessment Level: Moderate Risk
--- NOTE | 2020-07-16 22:50 | P.DS ---
Providers Date of admission: 07/15/20 17:28 Expected date of discharge: 07/16/20 Attending physician: Josias Kim Consults: 07/15/20 17:28 Consult Physician Urgent Consulting Provider: Dalia Schumacher Consult Reason/Comments: DIZZINESS Do you want consulting provider notified?: Yes Primary care physician: Jean Paul Ruvalcaba [facility] Course: Chief Complaint: Dizziness History of presenting complaint: This is a pleasant 85-year-old patient of . Patient is blind. On his current some light perception. Can't see a couple of colors including yellow. Lives by himself. Patient started having dizziness. What he describes as a head spinning. It was slowly getting better. Finally presented to the ER. It was not related to position. Not related to getting up. No ringing in the ears. No fever or congestion. Did receive some Antivert in the ER. Feeling better this morning. No arm or leg weakness. No change in walking, nor speech Patient is felt to have mild vestibulitis. Symptoms are greatly improved. Patient seen by neurology. Patient declined any testing. Wanted to go home. Hence patient is being discharged Consultation: Dr. Restrepo from neurology Past medical history to include: COPD, decreased vision, GERD, hyperlipidemia, colon cancer treated with surgery and chemotherapy 2001, gout, lung cancer in 2019 Social history: Lives alone. Also worked [employer]. Had multiple jobs. Started smoking at age of 16 and stopped in 2012. One half pack a day. Physical examination: VITAL SIGNS: 97.6, 80, 17, 126/67, 100% on room air upon presentation GENERAL: BMI 16.2, laying in bed, awake. EYES: Pupils equal. Conjunctiva benjamín patient limited to perception of light and yellow color l. HEENT: External appearance of nose and ears normal, oral cavity grossly normal. NECK: JVD not raised; masses not palpable. HEART: First and second heart sounds are normal; no edema. LUNGS: Respiratory rate normal; decreased breath sounds. ABDOMEN: Soft, nontender, liver spleen not palpable, no masses palpable. PSYCH: Alert and oriented x3; mood and affect normal. NEUROLOGICAL: Cranial nerves grossly intact; no facial asymmetry, power and sensation grossly intact. LYMPHATICS: No lymph nodes palpable in the axilla and neck INVESTIGATIONS, reviewed in the clinical context: White count 9.1 hemoglobin 11.8 platelets 15 potassium 4.1 creatinine 0.82 Coronavirus [PCR]-not detected EKG tracing personally reviewed by me-normal sinus rhythm Computed tomography scan of the brain-mild degenerative changes Assessment and plan: - Likely low-grade vestibulitis-causing acute dizziness-getting better -COPD in a previous smoker, on Spiriva -Legally blind. Patient only has perception to light and can see some colors including yellow. -GERD, on Protonix -Hyperlipidemia, on Mevacor -History of colon cancer with surgery and chemotherapy in 2001 -Gout, on allopurinol -History of lung cancer in 2019,. Disposition: Home Patient Condition at Discharge: Stable Plan - Discharge Summary New Discharge Prescriptions: New Meclizine [Antivert] 25 mg PO TID #15 tab Continue Tiotropium [place] [Spiriva] 1 cap INHALATION RT-DAILY Cyanocobalamin [Vitamin B-12] 500 mcg PO DAILY Lovastatin [Mevacor] 40 mg PO HS Diazepam [Valium] 5 - 10 mg PO HS PRN PRN Reason: Anxiety Allopurinol [Zyloprim] 300 mg PO DAILY Acetaminophen Tab [Tylenol] 1,000 mg PO Q6HR PRN PRN Reason: Pain Or Fever > 100.5 Levothyroxine Sodium [Synthroid] 25 mcg PO DAILY Melatonin 5 mg PO HS Triamcinolone 0.1% Cream [Kenalog 0.1% Cream] 1 applicatio TOPICAL BID PRN PRN Reason: Rash Vit C/E/Zn/Coppr/Lutein/Zeaxan [Preservision Areds 2 Softgel] 1 cap PO DAILY Pantoprazole Sodium [Protonix] 40 mg PO DAILY Cholecalciferol [Vitamin D3 (25 Mcg = 1000 Iu)] 50 mcg PO DAILY Discharge Medication List Allopurinol [Zyloprim] 300 mg PO DAILY 01/06/17 [History] Cyanocobalamin [Vitamin B-12] 500 mcg PO DAILY 01/06/17 [History] Diazepam [Valium] 5 - 10 mg PO HS PRN 01/06/17 [History] Lovastatin [Mevacor] 40 mg PO HS 01/06/17 [History] Tiotropium [place] [Spiriva] 1 cap INHALATION RT-DAILY 01/06/17 [History] Acetaminophen Tab [Tylenol] 1,000 mg PO Q6HR PRN 07/14/20 [History] Levothyroxine Sodium [Synthroid] 25 mcg PO DAILY 07/14/20 [History] Melatonin 5 mg PO HS 07/14/20 [History] Pantoprazole Sodium [Protonix] 40 mg PO DAILY 07/14/20 [History] Triamcinolone 0.1% Cream [Kenalog 0.1% Cream] 1 applicatio TOPICAL BID PRN 07/14/20 [History] Vit C/E/Zn/Coppr/Lutein/Zeaxan [Preservision Areds 2 Softgel] 1 cap PO DAILY 07/14/20 [History] Cholecalciferol [Vitamin D3 (25 Mcg = 1000 Iu)] 50 mcg PO DAILY 07/15/20 [History] Meclizine [Antivert] 25 mg PO TID #15 tab 07/16/20 [Rx] Follow up Appointment(s)/Referral(s): Jean Paul Ruvalcaba MD [Primary Care Provider] - 1-2 days Patient Instructions/Handouts: Dizziness (GEN) Discharge/Stand Alone Forms: Who Do I Call?, Help In The Home Discharge Disposition: HOME SELF-CARE
--- NOTE | 2020-07-17 20:14 | P.CNNES ---
History of Present Illness Consult date: 07/16/20 Requesting physician: Jose Enrique Gutierrez Reason for Consult: Dizziness History of Present Illness: Patient is a 85-year-old male, who came to the hospital yesterday at 12:41 PM for a syncopal spell. Patient is legally blind in both eyes, which he claims is due to some "rare cancer". Patient states that on 07/14/2020, he got up to go to the bathroom, and his head started spinning and legs felt like it will give out. He felt as if he would faint, and the legs felt like rubber. He states that this episode lasted for "a minute". He denies any slurred speech or facial droop. He did not seek medical attention at that time. He continues to feel slightly dizzy, stumbling when walking. He decided to come to the ER the following day. He never had any such syncopal spells. Denies any focal symptoms. Vital signs on arrival blood pressure 126/67, pulse rate 80, temperature 97.6. CT head showed degenerative change. Changes of chronic sinusitis. EKG shows normal sinus rhythm. CBC with normal WBC, hemoglobin 11.8, normal CMP, beltrán virus negative. Patient has a recent MRI of brain with and without contrast on 04/15/2020, which revealed age-related atrophic and chronic small vessel ischemic change. No acute intracranial process. No enhancing lesions. Moderate opacification of left maxillary sinus. On my review, there is complete opacification of the left maxillary sinus. Patient states that he has smoked 1 pack per day for "long time". When I asked about how long, patient became somewhat irritable, and did not want to answer. He states that he quit smoking 10-15 years ago. Does not do any drugs. Patient has history of lung cancer. Patient has developed blindness due to the effect of the cancer. He has seen the retina specialist. The vision loss started about one year ago and it progressively got worse. He can see some shadows, but cannot make out anything. Both eyes are equally affected. Review of Systems As above in detail. Patient has legal blindness, denies any numbness tingling focal weakness. Denies any dysphagia, dysarthria. Denies any chest pain shortness of breath, wheezing or cough. Patient has some gait imbalance. Some weight loss. No fever or chills. All other review of systems unremarkable. Past Medical History Past Medical History: Cancer, COPD, Eye Disorder, GERD/Reflux, Hyperlipidemia, Pneumonia Additional Past Medical History / Comment(s): hx Melanoma,COLON CANCER HAD SX AND CHEMO 2001, GOUT, PAST BROKEN WRISTS LT REQUIRED SX,limited vision-uses magnifying glass and flashlight to read. Lung Cancer 2019 History of Any Multi-Drug Resistant Organisms: None Reported Past Surgical History: Appendectomy, Bowel Resection, Orthopedic Surgery Additional Past Surgical History / Comment(s): SONALI CATARACTS-LENS IMPLANTS, LT WRIST SX REPAIED HAD PIN BUT SINCE REMOVED., COLONOSCOPY, EGD, LOW ANTERIOR RESECTION FOR STAGE 3 CANCER. Past Anesthesia/Blood Transfusion Reactions: No Reported Reaction Additional Past Anesthesia/Blood Transfusion Reaction / Comment(s): PT LIVES ALONE IN SINGLE LEVEL HOME THAT HAS 1 FRONT STEP. NO PETS. NO OUTSIDE SERVICES RECEIVED. NO MEDICAL EQUIPMENT. PT SERVED IN THE [employer]. HELD SEVERAL JOBS IN PAST MOST LATESTE ONE BEFORE RETIRING WAS [employer]ING [employer]. Past Psychological History: No Psychological Hx Reported Additional Psychological History / Comment(s): PT LIVES ALONE IN SINGLE LEVEL HOME THAT HAS 1 FRONT STEP. NO PETS. NO OUTSIDE SERVICES RECEIVED. NO MEDICAL EQUIPMENT. PT SERVED IN THE [employer]. HELD SEVERAL JOBS IN PAST MOST [employer] ONE BEFORE RETIRING WAS [employer]ING A[employer]. Smoking Status: Former smoker Past Alcohol Use History: None Reported Additional Past Alcohol Use History / Comment(s): STARTED SMOKING AT AGE 16 AND QUIT 2012. SMOKED 1.5 PPD. Past Drug Use History: None Reported - Past Family History Mother Family Medical History: Cancer Additional Family Medical History / Comment(s): BONE CANCER Father Additional Family Medical History / Comment(s): WORKED IN [employer] SINCE AGE 13- AT AGE 73 FROM "[employer] CAUSES" Medications and Allergies Home Medications Medication Instructions Recorded Confirmed Type Allopurinol [Zyloprim] 300 mg PO DAILY 01/06/17 07/15/20 History Cyanocobalamin [Vitamin B-12] 500 mcg PO DAILY 01/06/17 07/15/20 History Diazepam [Valium] 5 - 10 mg PO HS PRN 01/06/17 07/15/20 History Lovastatin [Mevacor] 40 mg PO HS 01/06/17 07/15/20 History Tiotropium [place] [Spiriva] 1 cap INHALATION RT-DAILY 01/06/17 07/15/20 History Acetaminophen Tab [Tylenol] 1,000 mg PO Q6HR PRN 07/14/20 07/15/20 History Levothyroxine Sodium [Synthroid] 25 mcg PO DAILY 07/14/20 07/15/20 History Melatonin 5 mg PO HS 07/14/20 07/15/20 History Pantoprazole Sodium [Protonix] 40 mg PO DAILY 07/14/20 07/15/20 History Triamcinolone 0.1% Cream [Kenalog 1 applicatio TOPICAL BID PRN 07/14/20 07/15/20 History 0.1% Cream] Vit C/E/Zn/Coppr/Lutein/Zeaxan 1 cap PO DAILY 07/14/20 07/15/20 History [Preservision Areds 2 Softgel] Cholecalciferol [Vitamin D3 (25 50 mcg PO DAILY 07/15/20 07/15/20 History Mcg = 1000 Iu)] Meclizine [Antivert] 25 mg PO TID #15 tab 07/16/20 Rx Allergies Allergy/AdvReac Type Severity Reaction Status Date / Time No Known Allergies Allergy Verified 07/15/20 16:38 Physical Examination - Vital Signs Vital Signs: Vital Signs Temp Pulse Pulse Pulse Resp BP BP 07/16/20 08:03 99.0 F 85 20 90/53 07/16/20 08:01 76 07/16/20 07:50 76 07/15/20 23:47 100/55 07/15/20 19:37 07/15/20 19:30 97.6 F 78 16 07/15/20 18:57 80 16 127/65 07/15/20 16:23 66 16 137/63 07/15/20 13:00 97.6 F 80 17 126/67 BP BP BP Pulse Ox 07/16/20 08:03 95 07/16/20 08:01 07/16/20 07:50 07/15/20 23:47 118/58 118/50 07/15/20 19:37 143/62 07/15/20 19:30 143/62 98 07/15/20 18:57 98 07/15/20 16:23 99 07/15/20 13:00 100 Intake and Output 07/15/20 07/16/20 07/16/20 22:59 06:59 14:59 Intake Total 240 Output Total 50 450 275 Balance -50 -450 -35 Intake: Oral 240 Output: Urine 50 450 275 Other: Voiding Method Urinal Toilet Urinal # Voids 1 # Bowel Movements 0 Weight 51.256 kg 51.256 kg On examination patient is an elderly male, in no acute distress, he is alert and awake fairly well oriented. Speech and language functions are normal. Attention, concentration is intact, fund of knowledge is slightly limited. On cranial nerve examination his both pupils are nonreactive. Patient is legally blind, cannot count fingers, only can see some light perception. Face is symmetric, tongue protrudes to the midline. Palatal elevation and sensation normal, hearing is slightly decreased, shoulder shrug normal. On muscle strength testing there is no pronator drift and the strength is normal in arms and legs reflexes diminished and plantars are downgoing sensory touch is equal. No ataxia for [id number] testing, tone of muscles is normal. Patient is slightly cachectic. On general examination, I could hear some bruit. S1 and S2 audible. Peripheral pulses are present, abdomen soft nontender, no edema. Results - Laboratory Findings CBC and BMP: 07/15/20 16:23 07/15/20 16:23 Abnormal Lab Findings: Abnormal Labs 07/15/20 16:23 RBC 3.74 L Hgb 11.8 L Hct 37.0 L Plt Count 115 L Lymphocytes # 0.7 L Assessment and Plan Assessment: * Near syncopal spell, likely vasovagal versus orthostatic. * Mild vertigo, possible peripheral or orthostatic. * Legal blindness * History of lung cancer. Plan: * I recommended a carotid Doppler. Patient completely declined. He states he does not want any ultrasound, which uses gel. He just wants to go home. Discussed with Dr. Kim. * May consider checking B12, folate. * Neurologically clear.
== END 2020-07-16 14:27 | disposition home or self-care (01) ==
LOC: EC 12:41 → 6NMEDSUR 17:28
PROVIDERS: ADMIT Hospitalist; ATTEND Hospitalist
DX: R42 Dizziness and giddiness (principal); R55 Syncope and collapse; J44.9 Chronic obstructive pulmonary disease, unspecified; H54.8 Legal blindness, as defined in USA; K21.9 Gastro-esophageal reflux disease without esophagitis; E78.5 Hyperlipidemia, unspecified; R29.6 Repeated falls; H26.9 Unspecified cataract; M10.9 Gout, unspecified; F41.9 Anxiety disorder, unspecified; Z79.899 Other long term (current) drug therapy; Z79.890 Hormone replacement therapy; Z20.822 Contact with and (suspected) exposure to COVID-19; Z90.49 Acquired absence of other specified parts of digestive tract; Z87.01 Personal history of pneumonia (recurrent); Z85.820 Personal history of malignant melanoma of skin; Z85.038 Personal history of other malignant neoplasm of large intestine; Z85.118 Personal history of other malignant neoplasm of bronchus and lung; Z92.21 Personal history of antineoplastic chemotherapy; Z87.891 Personal history of nicotine dependence; Z80.8 Family history of malignant neoplasm of other organs or systems
CPT/HCPCS: 99285; 36415; 94640 ×2; 97162; 97166; 80053; 85025; 87635; 70450; G0378 ×2; 93005

== ENCOUNTER → 2020-09-15 | Outpatient (CLI) | payer MEDICARE ==
--- NOTE | 2020-09-15 13:27 | CT ---
EXAMINATION TYPE: CT ChestAbdPelvis w con DATE OF EXAM: 09/15/2020 COMPARISON: 03/09/[address] chest 06/22/2020 HISTORY: Lung CA CT DLP: 439.1 mGycm CONTRAST: CT scan of the chest, abdomen and pelvis is performed with Oral Contrast and with IV Contrast, patien t injected with 80ml mL of Isovue 300. CT Chest: LUNGS: Scarlike nodular density superior segment left lower lobe image 24 appears slightly larger in size and measures 1 cm versus approximately 7 mm previously. Nodular density along the major fissure on the left measures 5.4 mm versus 5 mm previously. Additional nodular density along the right major fissure measures 7.1 mm image 25 versus 5.5 mm on prior examination. Moderate emphysematous changes n oted. Apical scarring seen. Calcified pleural plaques noted. MEDIASTINUM: Thoracic aorta is of normal caliber. The heart is not enlarged. No evidence for media stinal mass or adenopathy. HILAR STRUCTURES: No evidence for mass. No hilar adenopathy is appreciated. OTHER: No significant abnormality. CONTRAST CT ABDOMEN AND PELVIS FINDINGS: LIVER/GB: No calcified gallstones. No space occupying hepatic lesion. Biliary tree is of normal ca liber. PANCREAS: No inflammation. No distinct mass. SPLEEN: No splenic enlargement. No lesion seen. ADRENALS: No nodule. No thickening. KIDNEYS/BLADDER: No hydronephrosis. No nephrolithiasis. No distinct renal mass. Urinary bladder wa ll thickening may reflect underlying cystitis. BOWEL: Normal appendix. Normal bowel caliber. No inflammation. GENITAL ORGANS: No gross abnormality. LYMPH NODES: No greater than 1cm abdominal or pelvic lymph nodes are appreciated. AORTA: No significant abnormality. OSSEOUS STRUCTURES: Scattered degenerative changes. Mild to moderate loss of height involving L4 unch anged. OTHER: No significant additional abnormality is seen. IMPRESSION: 1. Areas of scarlike nodularity appear to be slightly larger in size. No new nodules seen. 2. COPD with emphysematous changes. 3. Calcified pleural plaques.
== END | disposition home or self-care (01) ==
LOC: RADPROMAIN 10:39
PROVIDERS: ATTEND Internal Medicine Hematology & Oncology
DX: C34.90 Malignant neoplasm of unspecified part of unspecified bronchus or lung (principal); J44.9 Chronic obstructive pulmonary disease, unspecified
CPT/HCPCS: 82565; 84520; 71260; 74177; J1642; Q9967 ×2

== ENCOUNTER → 2020-12-15 | Outpatient (CLI) | payer MEDICARE ==
--- NOTE | 2020-12-15 18:03 | CT ---
EXAMINATION TYPE: CT ChestAbdPelvis w con DATE OF EXAM: 12/15/2020 INDICATION: Follow up lung cancer. No complaints at time of scan. COMPARISON: CT DLP: 459.8 mGycm CONTRAST: Performed with Oral Contrast and with IV Contrast, patient injected with 100 mL of Isovue 300. TECHNIQUE: Axial images at 5 mm thick sections. Reconstructed images in the coronal plane. Delayed images through the kidneys. FINDINGS: CT CHEST: Portion of the thyroid visualized is normal. There is a lobular spiculated mass measuring 1.5 x 0.8 cm in the superior segment of lower lobe, seri es 4 image 27. This has enlarged from 1.0 cm. Note is made of some increased thickening along the daniel or fissure on the left at the same level measuring 0.7 cm, previous measurement 0.57 m. Similar thick ening along the right major fissure currently measures 0.9 cm, previous measurement 0.7 cm. Extensive emphysematous changes are present. No enlarged mediastinal or hilar adenopathy is evident. There is small shotty lymph nodes within the mediastinum. A borderline-sized lymph node measuring 1.0 cm in the pretracheal space at the level of adrianne. This was present previously. There may be a right hilar lymph node present in 0.9 cm. Note is made of pleural plaquing at the diaphragms and along the pleural margins posteriorly which could ref lect prior asbestos exposure. The ascending aorta diameter at the level of the main pulmonary artery is 3.2 cm. The main pulmonary artery diameter at the bifurcation is 2.4 cm. Hiatal hernia is present. CT ABDOMEN: Liver: Normal Spleen: Normal Pancreas: Normal Adrenal glands: The adrenal glands are normal. Gallbladder: Normal Kidneys: No masses are evident. No hydronephrosis is present. Multiple cortical renal cysts are sheila ntified on the left kidney on postcontrast imaging. Delayed images were obtained through the kidneys , which remain unremarkable. Aorta: Vascular calcification is within the aorta. Inferior vena cava: Normal. CT PELVIS: Loops of bowel within the abdomen and pelvis are normal. There are loops of bowel which are incom pletely distended or lack oral contrast limiting their evaluation. There is abundant fecal within the distal colon and rectum. Appendix: Not identified. No dilated tubular structure or inflammatory changes are evident. Urinary bladder: Normal. Genitourinary structures: Prostate is normal Osseous structures: No suspicious lytic or sclerotic lesions. IMPRESSIONS: 1. Lobular density which has some spiculated margins in the posterior left upper lung field has incre ased in size and is suspicious for neoplasm. Consider PET/CT. 2. Additional areas of thickening within the major fissures bilaterally have increased from the randy rison. 3. Emphysematous changes. 4. Pleural plaquing and calcification of the diaphragm may reflect prior asbestos exposure. 5. Hiatal hernia.
== END | disposition home or self-care (01) ==
LOC: RADPROMAIN 11:39
PROVIDERS: ATTEND Internal Medicine Hematology & Oncology
DX: Z03.89 Encounter for observation for other suspected diseases and conditions ruled out (principal); C34.91 Malignant neoplasm of unspecified part of right bronchus or lung; K44.9 Diaphragmatic hernia without obstruction or gangrene
CPT/HCPCS: 82565; 84520; 71260; 74177; J1642; Q9967

== ENCOUNTER → 2021-02-16 | Outpatient (CLI) | payer MEDICARE ==
--- NOTE | 2021-02-16 10:36 | MR ---
EXAMINATION TYPE: MR brain wo/w con DATE OF EXAM: 02/16/2021 COMPARISON: MRI brain 04/15/2020 HISTORY: Lung cancer TECHNIQUE: Multiplanar, multisequence images of the brain and brainstem is performed without and with IV contras t, utilizing 5 mL intravenous Gadavist . FINDINGS: There is some artifact on the exam. Diffusion weighted images demonstrate no evidence of a recent infarct or other diffusion abnormality. There is no extra-axial fluid collection or significa nt interval change in white matter signal abnormality. The ventricular system and cisternal spaces a re normal in size and appearance. The brain volume is age appropriate. Midline structures demonstrate normal morphology. The craniocervical junction appears within normal limits. Post contrast images demonstrate no change in enhancement, wispy enhancement in the right fr ontal region shows a similar appearance and may represent a venous angioma. The dural venous sinuses appear patent. The visualized sinuses are remarkable for extensive mucosal disease in the left maxill rolan sinus and the globes are intact. IMPRESSION: Stable brain MR, no evident metastasis. Sinus disease.
== END | disposition home or self-care (01) ==
LOC: RADMRIMAIN 08:17
PROVIDERS: ATTEND Internal Medicine Hematology & Oncology
DX: C34.91 Malignant neoplasm of unspecified part of right bronchus or lung (principal)
CPT/HCPCS: 70553; A9585

== ENCOUNTER → 2021-02-19 | Outpatient (CLI) | payer MEDICARE ==
--- NOTE | 2021-02-22 10:53 | PE ---
Nuclear medicine PET/CT HISTORY: R 91.1, initial Patient received 13.2 mCi F-18 FDG intravenously and delayed scanning was performed from skull base t o the mid thighs. Localization and attenuation correction CT scan was performed. Correlation to CT chest abdomen pelvis 12/15/2020 Chest and neck: There is calcified pleural plaque again noted within the chest bilaterally. SUV is 5. 4 in the perihilar location, additional right hilar node measures 4.5 SUV. There is no pleural or per icardial effusion. No cervical or supraclavicular adenopathy. There are metabolically active subcarin al node, SUV 4.7, retrocaval pretracheal node SUV 2.3, aorticopulmonary window nodes SUV 1.8, there i s a left upper lobe nodule again seen, SUV 1.4, left hilar node SUV 1.9. ABDOMEN: There is no adrenal mass. Some mild uptake is noted in the region of the inferior vena cava within the intrahepatic portion, SUV is 2.4. No retroperitoneal adenopathy or ascites. No suspicious hypermetabolic uptake. Osseous structures show no suspicious uptake. IMPRESSION: There is hypermetabolic uptake within the chest as described. Question some abnormal upta ke as described along the region of the intrahepatic inferior vena cava, liver MRI may be of benefit to assess for possible mass. Additional findings above.
== END | disposition home or self-care (01) ==
LOC: RADPETMAIN 10:24
PROVIDERS: ATTEND Internal Medicine Hematology & Oncology
DX: R91.1 Solitary pulmonary nodule (principal)
CPT/HCPCS: 78815; A9552

== ENCOUNTER → 2021-05-24 | Outpatient (CLI) | payer MEDICARE ==
--- NOTE | 2021-05-24 14:03 | CT ---
EXAMINATION TYPE: CT ChestAbdPelvis w con DATE OF EXAM: 05/24/2021 COMPARISON: PET/CT 02/19/2021, CT 12/15/2020 HISTORY: follow up lung/colon cancer CT DLP: 479.4 mGycm Automated exposure control for dose reduction was used. CONTRAST: CT scan of the chest, abdomen and pelvis is performed with Oral Contrast and with IV Contrast, patien t injected with 100 mL of Isovue 300. FINDINGS: Left subclavian artery shows a proximal occlusion with reconstitution likely via the verteb ral artery, correlate for retrograde flow of the left vertebral artery. There is a right-sided chest port coursing via a jugular approach, distal tip is within the superior vena cava LUNGS: The lungs are remarkable for interval growth of the spiculated mass in the left upper lobe whi ch now measures approximately 12 mm as compared to prior CT and PET/CT when it measured 8-9 mm. Apica l pleural thickening is present, there is emphysematous change There is no pleural effusion or pneum othorax seen. The tracheobronchial tree is patent. MEDIASTINUM: There are no greater than 1 cm hilar or mediastinal lymph nodes. Right hilar node shows a hypoechoic dense appearance, slightly decreased in size measuring approximately 9 mm as opposed to prior exam when it measured approximately 12 mm, posterior right hilar node now measures approximate ly 7 mm as opposed to prior exam when it measured approximately 9 mm. No pericardial effusion is seen . AORTA: Atheromatous changes are present within the aorta and mesenteric vasculature. OTHER: There is a hiatal hernia similar to prior exam. Calcified pleural plaques are again noted. LIVER/GB: No significant abnormality is appreciated. PANCREAS: No significant abnormality is seen. SPLEEN: No significant abnormality is seen. ADRENALS: No significant abnormality is seen. KIDNEYS: No significant abnormality is seen. REPRODUCTIVE ORGANS: No gross abnormality seen. BOWEL: Postop changes are noted in the pelvis FREE AIR: No Free Air visible. ASCITES: None seen. RETROPERITONEAL ADENOPATHY: No retroperitoneal adenopathy is seen. LYMPH NODES: No greater than 1 cm abdominal or pelvic lymph nodes are appreciated. URINARY BLADDER: No significant abnormality is seen. PELVIC ADENOPATHY: None visualized. OSSEOUS STRUCTURES: No significant abnormality is seen. IMPRESSION: There is some interval improvement in the right hilar adenopathy, progression suspected i n the spiculated mass in the left upper lobe. Proximal left subclavian artery occlusion.
== END | disposition home or self-care (01) ==
LOC: RADPROMAIN 09:59
PROVIDERS: ATTEND Internal Medicine Hematology & Oncology
DX: Z03.89 Encounter for observation for other suspected diseases and conditions ruled out (principal); C34.91 Malignant neoplasm of unspecified part of right bronchus or lung; C18.9 Malignant neoplasm of colon, unspecified
CPT/HCPCS: 82565; 84520; 71260; 74177; J1642; Q9967

== ENCOUNTER → 2021-07-27 | Outpatient (CLI) | payer MEDICARE ==
--- NOTE | 2021-07-27 11:10 | CT ---
EXAMINATION TYPE: CT chest w con DATE OF EXAM: 07/27/2021 COMPARISON: CT dated 05/24/2021 HISTORY: Lung CA CT DLP: 153.7 mGycm Automated exposure control for dose reduction was used. TECHNIQUE: CT scan of the chest is performed with IV Contrast, patient injected with 100 mL of Isovue 300. FINDINGS: LUNGS: Slightly larger spiculated lesion in the left lower lobe superior segment measuring 12 x 15 mm compar ed to 9 x 12 mm previously. Newly seen complete collapse of the middle lobe with obstruction of the m iddle lobe bronchus. This could be due to bronchial impaction. Recommend follow-up to resolution in 2 months. Stable thick fibrotic changes and pleural thickening in the lung apices bilaterally. 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 Stable bilateral pleural calcifications. N o definite new lung nodule identified. Patent trachea and main bronchi. No pleural effusion. MEDIASTINUM: No gross cardiomegaly. No pericardial effusion. 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 Slightly smaller right hilar lymph node measuring 8 mm randy red to 9 mm previously. No progressive lymphadenopathy in the chest. Right upper chest wall Port-A-Ca th with the tip is seen within the midportion of the SVC. OTHER: Bulky spleen. Bilateral renal cysts, suboptimally assessed by this CT scan. Diffuse osteopeni a. No aggressive bone lesion. IMPRESSION: 1. Interval enlargement of the spiculated lesion in the left lower lobe superior segment as described above. 2. Newly seen complete collapse of the middle lobe with obstruction of the middle lobe bronchus which could be due to bronchial impaction however underlying lesion cannot be excluded. Recommend short-te rm follow-up in 2 months for reassessment. Correlation with bronchoscopy can be also considered. 3. Smaller right hilar lymph node as described above. No progressive lymphadenopathy in the chest. Ot her incidental findings as described above.
== END | disposition home or self-care (01) ==
LOC: RADPROMAIN 09:23
PROVIDERS: ATTEND Internal Medicine Hematology & Oncology
DX: Z03.89 Encounter for observation for other suspected diseases and conditions ruled out (principal); C34.91 Malignant neoplasm of unspecified part of right bronchus or lung
CPT/HCPCS: 82565; 84520; 71260; 36415; J1642; Q9967

== ENCOUNTER → 2021-09-27 | Outpatient (CLI) | payer MEDICARE ==
--- NOTE | 2021-09-27 14:34 | CT ---
EXAMINATION TYPE: CT chest w con DATE OF EXAM: 09/27/2021 COMPARISON: CT dated thousand 22 HISTORY: Obs for mets. MALIGNANT NEOPLASM Right bronchus/lung CT DLP: 132.30 mGycm Automated exposure control for dose reduction was used. TECHNIQUE: CT scan of the chest is performed with IV Contrast, patient injected with 100 mL of Isovue 300. FINDINGS: LUNGS: Slightly enlarged suspicious lesion with spiculated margin in the left lower lobe superior seg ment measuring 13 x 18 mm compared to 12 x 15 mm previously. Persistent complete collapse of the midd le lobe with complete obliteration of the middle lobe bronchus, appreciated previously. Subtle infilt ration and groundglass opacity seen at the inferior aspect of the right upper lobe and the adjacent p ortion of the right lower lobe superior segment, possibly related to post radiation treatment however pulmonary infiltration (inflammatory/infectious or neoplastic) can't be excluded, attention on follo w-up. Persistent COPD changes. Newly seen subtle groundglass opacity of the right lower lobe, possibl y inflammatory/infectious in etiology. Larger right-sided pleural effusion. Stable bilateral pleural calcifications. Patent trachea and main bronchi. Segments of bronchial impaction in the right lower l obe. MEDIASTINUM: Unchanged heart, arterial and coronary calcifications. No pericardial effusion. Slightly enlarged subcarinal lymph node measuring 12 mm compared to 11 mm previously. Prominent precarinal ly mph node measuring 9 mm compared to 6 cm previously. Persistent right hilar soft tissue thickening, s lightly more prominent compared to the previous CT scan. 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 No gross upper abdominal abnormality. Osteopenia. No gross aggressive bone lesion. IMPRESSION: Interval enlargement of the left lower lobe superior segment suspicious lesion with slightly more pro minent mediastinal lymph nodes and more prominent right hilar soft tissue thickening. Progressive genie plastic/metastatic disease cannot be excluded. Further PET scan assessment can be considered. Other i nterval changes and incidental findings as described above.
== END | disposition home or self-care (01) ==
LOC: RADPROMAIN 09:54
PROVIDERS: ATTEND Internal Medicine Hematology & Oncology
DX: Z03.89 Encounter for observation for other suspected diseases and conditions ruled out (principal); C34.91 Malignant neoplasm of unspecified part of right bronchus or lung
CPT/HCPCS: 82565; 84520; 71260; J1642; Q9967